=== PATIENT | male | born 1945 | race Caucasian/White ===

== ENCOUNTER 2019-02-04 16:26 | Inpatient (IN) | payer MEDICARE, MEDICAID ==
[~2019-02-04] VITALS: Ht 172.7 cm; Wt 63.2 kg
[~2019-02-04 16:26] MED LIST: ACET325T14 PO; APIX5TAB PO; NICO-487 TD; TAMS-11 PO
--- NOTE | 2019-02-04 17:26 | NUR ---
pt bib ems staing he thinks he's going to have a seizure. pt states he may have has a seizure in december, but "no one at the hospital told me what happened or why i was there." Pt is a&ox4, but very confused as to why he's here. connected to monitoes. vss. edmd assessment complete labs drawn. cxr complete. awaiting results.
--- NOTE | 2019-02-04 17:44 | NUR ---
lab to bedside.
--- NOTE | 2019-02-04 17:59 | NUR ---
pt requesting to go to restroom. pt provided urinal. pt agreed that if he feels like he may have a seizure, he should not stand so he wont fall. pt confused, stating "I want you to reverse me. reverse me from all the people." pt continues to make nonsense statements. pt reoriented and remined to use urinal. vss. awaiting lab results at this time.
[2019-02-04 18:09] LABS: BASOPHILS # (AUTO) 0.03 x10^3/uL (0-0.1); BASOPHILS % (AUTO) 0 % (0-1); EOSINOPHILS % (AUTO) 1 % (1-7); LYMPHOCYTES # (AUTO) 1.53 x10^3/uL (1-3.4); LYMPHOCYTES % (AUTO) 16 % (22-44); MD NO; MEAN CORPUSCULAR HGB CONC 33.6 g/dL (33.2-36.2); MEAN CORPUSCULAR VOLUME 95.3 fL (81-97); MEAN PLATELET VOLUME 8.1 fL (7.4-10.4); MONOCYTES # (AUTO) 0.62 x10^3/uL (0.2-0.8); MONOCYTES % (AUTO) 7 % (2-9); NEUTROPHILS # (AUTO) 7.14 x10^3/uL (1.8-6.8); NEUTROPHILS % (AUTO) 76 % (42-75); PLATELET COUNT 289 x10^3/uL (130-400); RED BLOOD COUNT 3.63 x10^6/uL (4.38-5.82); RED CELL DISTRIBUTION WIDTH 13.9 % (9.4-14.8)
[2019-02-04 18:14] LABS: ALANINE AMINOTRANSFERASE 26 U/L (12-78); ALBUMIN 3.9 g/dL (3.4-5.0); ANION GAP 6 mmol/L (5-15); CALCIUM 9.1 mg/dL (8.5-10.1); CHLORIDE 105 mmol/L (98-107); CREATININE 0.87 mg/dL (0.7-1.3)
[2019-02-04 18:16] LABS: ALKALINE PHOSPHATASE 80 U/L (45-117); BILIRUBIN,TOTAL 0.7 mg/dL (0.2-1.0); TOTAL PROTEIN 6.9 g/dL (6.4-8.2)
--- NOTE | 2019-02-04 18:21 | NUR ---
pt refusing help with urination from female staff. male tech to bedside to help.
--- NOTE | 2019-02-04 18:38 | NUR ---
pt to rr with this rn and male tech via wheelchair.
--- NOTE | 2019-02-04 19:14 | NUR ---
pt unable to get him self out of bed to try and ambulate, notified and criminal justice social worker, pt to be admitted per md
--- NOTE | 2019-02-04 19:39 | NUR ---
PT BACK FROM CT SCAN. IV PLACED, PT TOLERATED WELL.
--- NOTE | 2019-02-04 19:53 | NUR ---
pt unable to recall home medications. unable to complete med rec at this time. pt resting in room. needs frequent reminders not to remove equipment and not to get up out of bed. pt does not have steady gait and is not steady standing alone. vss. awaiting room assignment.
[2019-02-04] MEDS ORDERED: SODIUM CHLORIDE FLUSH 10ML SYR IVF PRN (20:00)
[2019-02-04] MEDS ORDERED: MECLIZINE CHEWABLE 25 MG TAB PO PRN (20:30)
[2019-02-04] MEDS ORDERED: BISACODYL 10 MG SUPP PR PRN (20:30)
[2019-02-04] MEDS ORDERED: ONDANSETRON ODT 4 MG PO PRN (20:30)
[2019-02-04] MEDS: APIXABAN 5 MG TABLET PO SCH (21:11)
[2019-02-04] MEDS: SODIUM CHLORIDE FLUSH 10ML SYR IVF SCH (21:11)
[2019-02-05 00:27] VITALS: BP 144/68
[2019-02-05 08:08] VITALS: BP 117/73
[2019-02-05] MEDS: SODIUM CHLORIDE FLUSH 10ML SYR IVF SCH ×2 (08:21→21:41)
[2019-02-05] MEDS: APIXABAN 5 MG TABLET PO SCH ×2 (08:21→21:41)
[2019-02-05] MEDS: SENNA/DOCUSATE TABLET PO SCH (08:21)
[2019-02-05] MEDS: TAMSULOSIN 0.4 MG CAP.ER.24H PO SCH (08:21)
[2019-02-05 08:44] LABS: BASOPHILS # (AUTO) 0.03 x10^3/uL (0-0.1); BASOPHILS % (AUTO) 0 % (0-1); EOSINOPHILS # (AUTO) 0.12 x10^3/uL (0-0.4); EOSINOPHILS % (AUTO) 1 % (1-7); LYMPHOCYTES % (AUTO) 16 % (22-44); MD NO; MEAN CORPUSCULAR HEMOGLOBIN 30.7 pg (27.5-34.5); MEAN CORPUSCULAR HGB CONC 32.6 g/dL (33.2-36.2); MEAN CORPUSCULAR VOLUME 94.4 fL (81-97); MEAN PLATELET VOLUME 8.2 fL (7.4-10.4); MONOCYTES % (AUTO) 6 % (2-9); NEUTROPHILS # (AUTO) 6.85 x10^3/uL (1.8-6.8); NEUTROPHILS % (AUTO) 77 % (42-75); PLATELET COUNT 310 x10^3/uL (130-400); RED BLOOD COUNT 4.06 x10^6/uL (4.38-5.82); RED CELL DISTRIBUTION WIDTH 13.6 % (9.4-14.8)
[2019-02-05 08:52] LABS: ANION GAP 6 mmol/L (5-15); CALCIUM 9.2 mg/dL (8.5-10.1); CHLORIDE 104 mmol/L (98-107)
[2019-02-05 08:57] LABS: ALANINE AMINOTRANSFERASE 24 U/L (12-78); ALKALINE PHOSPHATASE 83 U/L (45-117); BILIRUBIN,TOTAL 0.8 mg/dL (0.2-1.0); CREATININE 0.85 mg/dL (0.7-1.3); TOTAL PROTEIN 7.3 g/dL (6.4-8.2)
[2019-02-05] MEDS: POTASSIUM CHLORIDE 20 MEQ TAB.ER.PRT PO SCH ×2 (10:30→17:00)
[2019-02-05 12:59] VITALS: BP 163/75
[2019-02-05] MEDS ORDERED: HALOPERIDOL 1 MG TABLET PO PRN (15:00)
[2019-02-05] MEDS: HALOPERIDOL 2 MG/ML ORAL SOL PO PRN (15:17)
[2019-02-05 19:48] VITALS: BP 123/69
[2019-02-06] MEDS: HALOPERIDOL 2 MG/ML ORAL SOL PO PRN ×2 (00:48→16:30)
[2019-02-06 00:57] VITALS: BP 119/70
[2019-02-06 07:37] VITALS: BP 113/66
[2019-02-06] MEDS: POTASSIUM CHLORIDE 20 MEQ TAB.ER.PRT PO SCH ×2 (08:00→16:52)
[2019-02-06] MEDS: SODIUM CHLORIDE FLUSH 10ML SYR IVF SCH ×2 (08:19→21:00)
[2019-02-06] MEDS: TAMSULOSIN 0.4 MG CAP.ER.24H PO SCH (08:20)
[2019-02-06] MEDS: APIXABAN 5 MG TABLET PO SCH ×2 (08:20→20:06)
[2019-02-06] MEDS: SENNA/DOCUSATE TABLET PO SCH (08:20)
[2019-02-06 13:18] VITALS: BP 106/59
[2019-02-06] MEDS: ACETAMINOPHEN 325 MG TABLET PO PRN (20:06)
[2019-02-06 20:40] VITALS: BP 106/62
[2019-02-07 01:39] VITALS: BP 137/70
[2019-02-07 08:27] VITALS: BP 136/66
[2019-02-07] MEDS: SODIUM CHLORIDE FLUSH 10ML SYR IVF SCH ×2 (09:00→21:00)
[2019-02-07] MEDS: SENNA/DOCUSATE TABLET PO SCH (09:52)
[2019-02-07] MEDS: APIXABAN 5 MG TABLET PO SCH ×2 (09:52→21:18)
[2019-02-07] MEDS: TAMSULOSIN 0.4 MG CAP.ER.24H PO SCH (09:52)
[2019-02-07] MEDS: POTASSIUM CHLORIDE 20 MEQ TAB.ER.PRT PO SCH ×2 (09:52→17:11)
[2019-02-07 13:01] VITALS: BP 137/69
[2019-02-07 19:03] VITALS: BP 137/69
[2019-02-07] MEDS: HALOPERIDOL 2 MG/ML ORAL SOL PO PRN (21:18)
[2019-02-08 01:09] VITALS: BP 143/71
[2019-02-08 07:05] VITALS: BP 114/67
[2019-02-08] MEDS: TAMSULOSIN 0.4 MG CAP.ER.24H PO SCH (08:24)
[2019-02-08] MEDS: SENNA/DOCUSATE TABLET PO SCH (08:24)
[2019-02-08] MEDS: APIXABAN 5 MG TABLET PO SCH ×2 (08:25→21:30)
[2019-02-08] MEDS: POTASSIUM CHLORIDE 20 MEQ TAB.ER.PRT PO SCH ×2 (08:25→17:00)
[2019-02-08 08:44] LABS: ALBUMIN 3.9 g/dL (3.4-5.0); ANION GAP 5 mmol/L (5-15); CALCIUM 9.4 mg/dL (8.5-10.1); CHLORIDE 102 mmol/L (98-107); CREATININE 0.87 mg/dL (0.7-1.3)
[2019-02-08] MEDS: SODIUM CHLORIDE FLUSH 10ML SYR IVF SCH ×2 (09:00→21:00)
[2019-02-08 12:30] VITALS: BP 136/68
[2019-02-08 19:37] VITALS: BP 112/65
[2019-02-08] MEDS: MELATONIN 5 MG TABLET PO PRN (21:30)
[2019-02-09 01:07] VITALS: BP 134/76
[2019-02-09] MEDS: HALOPERIDOL 2 MG/ML ORAL SOL PO PRN ×2 (05:05→20:07)
[2019-02-09 06:26] LABS: ALBUMIN 3.8 g/dL (3.4-5.0); ANION GAP 7 mmol/L (5-15); CALCIUM 9.3 mg/dL (8.5-10.1); CHLORIDE 103 mmol/L (98-107)
[2019-02-09 06:30] LABS: ALANINE AMINOTRANSFERASE 21 U/L (12-78); ALKALINE PHOSPHATASE 73 U/L (45-117); BILIRUBIN,TOTAL 0.7 mg/dL (0.2-1.0); CREATININE 0.81 mg/dL (0.7-1.3); TOTAL PROTEIN 7.2 g/dL (6.4-8.2)
[2019-02-09 06:52] LABS: BASOPHILS # (AUTO) 0.03 x10^3/uL (0-0.1); BASOPHILS % (AUTO) 0 % (0-1); EOSINOPHILS # (AUTO) 0.27 x10^3/uL (0-0.4); EOSINOPHILS % (AUTO) 3 % (1-7); LYMPHOCYTES % (AUTO) 24 % (22-44); MD NO; MEAN CORPUSCULAR HEMOGLOBIN 31.2 pg (27.5-34.5); MEAN CORPUSCULAR HGB CONC 33.1 g/dL (33.2-36.2); MEAN CORPUSCULAR VOLUME 94.3 fL (81-97); MEAN PLATELET VOLUME 8.3 fL (7.4-10.4); MONOCYTES # (AUTO) 0.53 x10^3/uL (0.2-0.8); MONOCYTES % (AUTO) 7 % (2-9); NEUTROPHILS # (AUTO) 5.24 x10^3/uL (1.8-6.8); NEUTROPHILS % (AUTO) 66 % (42-75); PLATELET COUNT 316 x10^3/uL (130-400); RED BLOOD COUNT 3.78 x10^6/uL (4.38-5.82); RED CELL DISTRIBUTION WIDTH 13.6 % (9.4-14.8)
[2019-02-09 08:05] VITALS: BP 143/68
[2019-02-09] MEDS: SODIUM CHLORIDE FLUSH 10ML SYR IVF SCH ×2 (09:00→20:06)
[2019-02-09] MEDS: POTASSIUM CHLORIDE 20 MEQ TAB.ER.PRT PO SCH ×2 (10:37→16:14)
[2019-02-09] MEDS: SENNA/DOCUSATE TABLET PO SCH (10:37)
[2019-02-09] MEDS: TAMSULOSIN 0.4 MG CAP.ER.24H PO SCH (10:38)
[2019-02-09] MEDS: APIXABAN 5 MG TABLET PO SCH ×2 (10:38→20:07)
[2019-02-09 14:00] VITALS: BP 102/59
[2019-02-09] MEDS: ACETAMINOPHEN 325 MG TABLET PO PRN (16:14)
[2019-02-09] MEDS: MELATONIN 5 MG TABLET PO PRN (20:07)
[2019-02-09 21:31] VITALS: BP 107/63
[2019-02-09 23:33] LABS: MICROSCOPIC AUTO
[2019-02-09 23:44] LABS: CULTURE INDICATED? YES
[2019-02-10 01:49] VITALS: BP 121/71
[2019-02-10 07:34] VITALS: BP 144/70
[2019-02-10] MEDS: POTASSIUM CHLORIDE 20 MEQ TAB.ER.PRT PO SCH ×2 (08:00→16:50)
[2019-02-10] MEDS: SENNA/DOCUSATE TABLET PO SCH (09:00)
[2019-02-10] MEDS: SODIUM CHLORIDE FLUSH 10ML SYR IVF SCH ×2 (09:00→21:00)
[2019-02-10] MEDS: TAMSULOSIN 0.4 MG CAP.ER.24H PO SCH (10:23)
[2019-02-10] MEDS: APIXABAN 5 MG TABLET PO SCH ×2 (10:23→22:01)
[2019-02-10 13:29] VITALS: BP 121/72
[2019-02-10 19:39] VITALS: BP 98/61
[2019-02-10] MEDS: MELATONIN 5 MG TABLET PO PRN (22:01)
[2019-02-10] MEDS: HALOPERIDOL 2 MG/ML ORAL SOL PO PRN (22:02)
[2019-02-11 00:38] VITALS: BP 138/69
[2019-02-11] MEDS ORDERED: CEPHALEXIN 500 MG CAPSULE PO ONE (04:00)
[2019-02-11] MEDS: ACETAMINOPHEN 325 MG TABLET PO PRN ×2 (04:56→23:51)
[2019-02-11 07:41] VITALS: BP 90/53
[2019-02-11] MEDS: POTASSIUM CHLORIDE 20 MEQ TAB.ER.PRT PO SCH ×3 (08:00→17:12)
[2019-02-11] MEDS: SODIUM CHLORIDE FLUSH 10ML SYR IVF SCH ×2 (08:15→19:21)
[2019-02-11] MEDS: SENNA/DOCUSATE TABLET PO SCH (09:14)
[2019-02-11] MEDS: APIXABAN 5 MG TABLET PO SCH ×2 (09:14→21:42)
[2019-02-11] MEDS: TAMSULOSIN 0.4 MG CAP.ER.24H PO SCH (09:14)
[2019-02-11 13:35] VITALS: BP 117/66
[2019-02-11] MEDS ORDERED: CEFTRIAXONE PMX 1GM/50ML 50 ML IV SCH (14:30)
[2019-02-11] MEDS: CEFDINIR 300 MG CAPSULE PO SCH ×2 (15:56→21:40)
[2019-02-11 19:21] VITALS: BP 110/68
[2019-02-11] MEDS ORDERED: TRAZODONE 50MG TABLET PO SCH (21:00)
[2019-02-11] MEDS: POLYETHYLENE GLYCOL 17 GM PACKET PO PRN (21:37)
[2019-02-11] MEDS: MELATONIN 5 MG TABLET PO PRN (21:41)
[2019-02-12 01:33] VITALS: BP 150/73
[2019-02-12] MEDS: SODIUM CHLORIDE FLUSH 10ML SYR IVF SCH ×2 (06:48→20:07)
[2019-02-12 06:58] VITALS: BP 124/72
[2019-02-12] MEDS: APIXABAN 5 MG TABLET PO SCH ×3 (10:12→22:13)
[2019-02-12] MEDS: POTASSIUM CHLORIDE 20 MEQ TAB.ER.PRT PO SCH ×2 (10:12→17:54)
[2019-02-12] MEDS: CEFDINIR 300 MG CAPSULE PO SCH ×3 (10:12→21:00)
[2019-02-12] MEDS: SENNA/DOCUSATE TABLET PO SCH (10:12)
[2019-02-12] MEDS: TAMSULOSIN 0.4 MG CAP.ER.24H PO SCH (10:13)
[2019-02-12 13:25] VITALS: BP 106/63
[2019-02-12] MEDS: ACETAMINOPHEN 325 MG TABLET PO PRN ×2 (15:09→22:10)
[2019-02-12 15:17] LABS: BASOPHILS # (AUTO) 0.03 x10^3/uL (0-0.1); BASOPHILS % (AUTO) 0 % (0-1); EOSINOPHILS # (AUTO) 0.32 x10^3/uL (0-0.4); EOSINOPHILS % (AUTO) 4 % (1-7); LYMPHOCYTES # (AUTO) 2.08 x10^3/uL (1-3.4); LYMPHOCYTES % (AUTO) 27 % (22-44); MD NO; MEAN CORPUSCULAR HEMOGLOBIN 31.7 pg (27.5-34.5); MEAN CORPUSCULAR HGB CONC 33.4 g/dL (33.2-36.2); MEAN CORPUSCULAR VOLUME 94.8 fL (81-97); MEAN PLATELET VOLUME 7.5 fL (7.4-10.4); MONOCYTES # (AUTO) 0.46 x10^3/uL (0.2-0.8); MONOCYTES % (AUTO) 6 % (2-9); NEUTROPHILS # (AUTO) 4.88 x10^3/uL (1.8-6.8); NEUTROPHILS % (AUTO) 63 % (42-75); PLATELET COUNT 353 x10^3/uL (130-400); RED BLOOD COUNT 3.86 x10^6/uL (4.38-5.82); RED CELL DISTRIBUTION WIDTH 14.3 % (9.4-14.8)
[2019-02-12 15:30] LABS: ALANINE AMINOTRANSFERASE 21 U/L (12-78); ANION GAP 4 mmol/L (5-15); CALCIUM 9.4 mg/dL (8.5-10.1); CHLORIDE 105 mmol/L (98-107); CREATININE 1.05 mg/dL (0.7-1.3)
[2019-02-12 15:32] LABS: ALKALINE PHOSPHATASE 79 U/L (45-117); BILIRUBIN,TOTAL 0.4 mg/dL (0.2-1.0); TOTAL PROTEIN 7.5 g/dL (6.4-8.2)
[2019-02-12 19:10] VITALS: BP 101/58
[2019-02-12] MEDS: MELATONIN 5 MG TABLET PO PRN ×2 (20:07→22:13)
[2019-02-12] MEDS: HALOPERIDOL 2 MG/ML ORAL SOL PO PRN ×2 (20:07→22:10)
[2019-02-13 01:08] VITALS: BP 108/64
[2019-02-13 07:17] VITALS: BP 134/76
[2019-02-13] MEDS: SODIUM CHLORIDE FLUSH 10ML SYR IVF SCH ×2 (07:54→21:00)
[2019-02-13] MEDS: CEFDINIR 300 MG CAPSULE PO SCH ×2 (07:58→22:05)
[2019-02-13] MEDS: APIXABAN 5 MG TABLET PO SCH ×2 (07:58→22:05)
[2019-02-13] MEDS: POTASSIUM CHLORIDE 20 MEQ TAB.ER.PRT PO SCH ×2 (07:58→17:33)
[2019-02-13] MEDS: SENNA/DOCUSATE TABLET PO SCH (07:59)
[2019-02-13] MEDS: TAMSULOSIN 0.4 MG CAP.ER.24H PO SCH (07:59)
[2019-02-13 13:23] VITALS: BP 129/69
[2019-02-13 19:24] VITALS: BP 122/64
[2019-02-14 01:23] VITALS: BP 118/59
[2019-02-14 08:31] VITALS: BP 110/58
[2019-02-14] MEDS: SODIUM CHLORIDE FLUSH 10ML SYR IVF SCH ×2 (09:00→20:55)
[2019-02-14] MEDS: APIXABAN 5 MG TABLET PO SCH ×2 (10:58→20:52)
[2019-02-14] MEDS: SENNA/DOCUSATE TABLET PO SCH (10:58)
[2019-02-14] MEDS: POTASSIUM CHLORIDE 20 MEQ TAB.ER.PRT PO SCH ×2 (10:58→17:47)
[2019-02-14] MEDS: CEFDINIR 300 MG CAPSULE PO SCH ×2 (10:58→20:52)
[2019-02-14] MEDS: TAMSULOSIN 0.4 MG CAP.ER.24H PO SCH (10:59)
[2019-02-14] MEDS: ACETAMINOPHEN 325 MG TABLET PO PRN ×2 (11:22→20:52)
[2019-02-14 13:24] VITALS: BP 98/59
[2019-02-14 19:13] VITALS: BP 118/68
[2019-02-15 02:00] VITALS: BP 108/64
[2019-02-15] MEDS: CEFDINIR 300 MG CAPSULE PO SCH ×2 (09:27→20:56)
[2019-02-15] MEDS: SENNA/DOCUSATE TABLET PO SCH (09:27)
[2019-02-15] MEDS: POTASSIUM CHLORIDE 20 MEQ TAB.ER.PRT PO SCH ×2 (09:27→17:12)
[2019-02-15] MEDS: APIXABAN 5 MG TABLET PO SCH ×2 (09:28→20:56)
[2019-02-15] MEDS: TAMSULOSIN 0.4 MG CAP.ER.24H PO SCH (09:28)
[2019-02-15 09:37] VITALS: BP 126/65
[2019-02-15 14:00] VITALS: BP 132/69
[2019-02-15 19:00] VITALS: BP 115/65
[2019-02-16 02:37] VITALS: BP 132/67
[2019-02-16 08:00] VITALS: BP 131/65
[2019-02-16] MEDS: SENNA/DOCUSATE TABLET PO SCH (09:38)
[2019-02-16] MEDS: POTASSIUM CHLORIDE 20 MEQ TAB.ER.PRT PO SCH ×2 (09:39→17:08)
[2019-02-16] MEDS: TAMSULOSIN 0.4 MG CAP.ER.24H PO SCH (09:39)
[2019-02-16] MEDS: CEFDINIR 300 MG CAPSULE PO SCH ×2 (09:39→21:00)
[2019-02-16] MEDS: APIXABAN 5 MG TABLET PO SCH ×2 (09:39→21:00)
[2019-02-16 14:00] VITALS: BP 125/76
[2019-02-16 19:07] VITALS: BP 109/63
[2019-02-17 02:00] VITALS: BP 142/98
[2019-02-17 07:20] VITALS: BP 127/63
[2019-02-17] MEDS: POTASSIUM CHLORIDE 20 MEQ TAB.ER.PRT PO SCH ×2 (11:15→17:02)
[2019-02-17] MEDS: TAMSULOSIN 0.4 MG CAP.ER.24H PO SCH (11:15)
[2019-02-17] MEDS: SENNA/DOCUSATE TABLET PO SCH (11:15)
[2019-02-17] MEDS: CEFDINIR 300 MG CAPSULE PO SCH ×2 (11:15→19:23)
[2019-02-17] MEDS: APIXABAN 5 MG TABLET PO SCH ×2 (11:15→19:23)
[2019-02-17 13:20] VITALS: BP 121/68
[2019-02-17 18:31] VITALS: BP 113/65
[2019-02-17] MEDS: MELATONIN 5 MG TABLET PO PRN (22:37)
[2019-02-18 01:08] VITALS: BP 117/67
[2019-02-18 07:33] VITALS: BP 111/62
[2019-02-18] MEDS: TAMSULOSIN 0.4 MG CAP.ER.24H PO SCH (09:41)
[2019-02-18] MEDS: SENNA/DOCUSATE TABLET PO SCH (09:42)
[2019-02-18] MEDS: POTASSIUM CHLORIDE 20 MEQ TAB.ER.PRT PO SCH ×2 (09:42→17:37)
[2019-02-18] MEDS: CEFDINIR 300 MG CAPSULE PO SCH ×2 (09:42→19:47)
[2019-02-18] MEDS: APIXABAN 5 MG TABLET PO SCH ×2 (09:42→19:47)
[2019-02-18 14:50] VITALS: BP 113/64
[2019-02-18 19:21] VITALS: BP 115/62
[2019-02-18] MEDS: MELATONIN 5 MG TABLET PO PRN (19:47)
[2019-02-18] MEDS: ACETAMINOPHEN 325 MG TABLET PO PRN (21:57)
[2019-02-19 00:45] VITALS: BP 130/67
[2019-02-19] MEDS: HALOPERIDOL 2 MG/ML ORAL SOL PO PRN ×2 (01:18→18:24)
[2019-02-19 07:16] VITALS: BP 137/82
[2019-02-19] MEDS: SENNA/DOCUSATE TABLET PO SCH (09:30)
[2019-02-19] MEDS: POTASSIUM CHLORIDE 20 MEQ TAB.ER.PRT PO SCH ×2 (09:30→18:24)
[2019-02-19] MEDS: CEFDINIR 300 MG CAPSULE PO SCH ×2 (09:30→19:43)
[2019-02-19] MEDS: ACETAMINOPHEN 325 MG TABLET PO PRN ×2 (09:30→14:12)
[2019-02-19] MEDS: TAMSULOSIN 0.4 MG CAP.ER.24H PO SCH (09:30)
[2019-02-19] MEDS: APIXABAN 5 MG TABLET PO SCH ×2 (09:30→19:44)
[2019-02-19 12:52] VITALS: BP 107/62
[2019-02-19 19:04] VITALS: BP 132/66
[2019-02-19] MEDS: MELATONIN 5 MG TABLET PO PRN (19:44)
[2019-02-20 01:34] VITALS: BP 124/66
[2019-02-20] MEDS: HALOPERIDOL 2 MG/ML ORAL SOL PO PRN ×2 (06:29→14:39)
[2019-02-20 08:09] VITALS: BP 146/74
[2019-02-20] MEDS: APIXABAN 5 MG TABLET PO SCH ×2 (09:24→20:05)
[2019-02-20] MEDS: POTASSIUM CHLORIDE 20 MEQ TAB.ER.PRT PO SCH ×2 (09:24→17:31)
[2019-02-20] MEDS: SENNA/DOCUSATE TABLET PO SCH (09:24)
[2019-02-20] MEDS: TAMSULOSIN 0.4 MG CAP.ER.24H PO SCH (09:24)
[2019-02-20] MEDS: CEFDINIR 300 MG CAPSULE PO SCH ×2 (09:24→20:04)
[2019-02-20 12:53] VITALS: BP 118/67
[2019-02-20 19:10] VITALS: BP 136/71
[2019-02-20] MEDS: ACETAMINOPHEN 325 MG TABLET PO PRN (20:04)
[2019-02-20] MEDS: MELATONIN 5 MG TABLET PO PRN (20:05)
[2019-02-21 01:57] VITALS: BP 137/68
[2019-02-21] MEDS: HALOPERIDOL 2 MG/ML ORAL SOL PO PRN (02:23)
[2019-02-21 07:50] VITALS: BP 135/64
[2019-02-21] MEDS: POTASSIUM CHLORIDE 20 MEQ TAB.ER.PRT PO SCH ×2 (08:52→09:25)
[2019-02-21] MEDS: SENNA/DOCUSATE TABLET PO SCH ×2 (08:53→09:26)
[2019-02-21] MEDS: TAMSULOSIN 0.4 MG CAP.ER.24H PO SCH ×2 (08:53→09:26)
[2019-02-21] MEDS: CEFDINIR 300 MG CAPSULE PO SCH ×3 (08:53→20:21)
[2019-02-21] MEDS: APIXABAN 5 MG TABLET PO SCH ×3 (08:53→20:21)
[2019-02-21 16:23] LABS: ANION GAP 5 mmol/L (5-15); CALCIUM 9.6 mg/dL (8.5-10.1); CHLORIDE 107 mmol/L (98-107)
[2019-02-21 16:24] LABS: CREATININE 1.09 mg/dL (0.7-1.3)
[2019-02-21 20:10] VITALS: BP 149/75
[2019-02-21] MEDS: MELATONIN 5 MG TABLET PO PRN (20:21)
[2019-02-21] MEDS: ACETAMINOPHEN 325 MG TABLET PO PRN (20:22)
[2019-02-22 01:25] VITALS: BP 116/71
[2019-02-22 07:00] VITALS: BP 129/69
[2019-02-22] MEDS: CEFDINIR 300 MG CAPSULE PO SCH ×2 (09:00→21:05)
[2019-02-22] MEDS: TAMSULOSIN 0.4 MG CAP.ER.24H PO SCH (09:00)
[2019-02-22] MEDS: APIXABAN 5 MG TABLET PO SCH ×2 (09:00→21:05)
[2019-02-22] MEDS: SENNA/DOCUSATE TABLET PO SCH (09:00)
[2019-02-22] MEDS: ENOXAPARIN 40 MG/0.4 ML SQ SCH (12:30)
[2019-02-22 12:43] VITALS: BP 112/62
[2019-02-22 16:44] LABS: INTERNATIONAL NORMALIZED RATIO 1.02 (0.93-1.1); PROTHROMBIN TIME 10.7 Seconds (9.6-11.5)
[2019-02-22 19:27] VITALS: BP 121/70
[2019-02-22] MEDS: ACETAMINOPHEN 325 MG TABLET PO PRN (21:05)
[2019-02-23 06:57] VITALS: BP 110/67
[2019-02-23] MEDS: CEFDINIR 300 MG CAPSULE PO SCH ×2 (10:32→21:06)
[2019-02-23] MEDS: SENNA/DOCUSATE TABLET PO SCH (10:32)
[2019-02-23] MEDS: TAMSULOSIN 0.4 MG CAP.ER.24H PO SCH (10:32)
[2019-02-23] MEDS: APIXABAN 5 MG TABLET PO SCH ×2 (10:32→21:06)
[2019-02-23] MEDS: ENOXAPARIN 40 MG/0.4 ML SQ SCH (12:30)
[2019-02-23 14:00] VITALS: BP 112/62
[2019-02-23] MEDS: HALOPERIDOL 2 MG/ML ORAL SOL PO PRN (15:29)
[2019-02-23 19:39] VITALS: BP 133/72
[2019-02-23] MEDS: MELATONIN 5 MG TABLET PO PRN (21:06)
[2019-02-24 02:00] VITALS: BP 151/71
[2019-02-24 08:32] VITALS: BP 112/68
[2019-02-24] MEDS: APIXABAN 5 MG TABLET PO SCH ×2 (11:14→20:56)
[2019-02-24] MEDS: TAMSULOSIN 0.4 MG CAP.ER.24H PO SCH (11:14)
[2019-02-24] MEDS: SENNA/DOCUSATE TABLET PO SCH (11:15)
[2019-02-24] MEDS: ENOXAPARIN 40 MG/0.4 ML SQ SCH (12:30)
[2019-02-24 13:57] VITALS: BP 134/72
[2019-02-24] MEDS: MELATONIN 5 MG TABLET PO PRN (20:56)
[2019-02-24 21:36] VITALS: BP 104/60
[2019-02-25 02:54] VITALS: BP 95/60
[2019-02-25] MEDS: ACETAMINOPHEN 325 MG TABLET PO PRN (04:45)
[2019-02-25 06:15] VITALS: BP 126/69
[2019-02-25 06:19] LABS: CREATININE 0.97 mg/dL (0.7-1.3)
[2019-02-25] MEDS: SENNA/DOCUSATE TABLET PO SCH (07:53)
[2019-02-25] MEDS: APIXABAN 5 MG TABLET PO SCH ×2 (07:53→20:10)
[2019-02-25] MEDS: TAMSULOSIN 0.4 MG CAP.ER.24H PO SCH (07:53)
[2019-02-25] MEDS: ENOXAPARIN 40 MG/0.4 ML SQ SCH (12:30)
[2019-02-25 15:29] VITALS: BP 113/61
[2019-02-25 18:22] VITALS: BP 111/65
[2019-02-26 01:41] VITALS: BP 132/70
[2019-02-26 07:09] VITALS: BP 150/76
[2019-02-26] MEDS: SENNA/DOCUSATE TABLET PO SCH (09:43)
[2019-02-26] MEDS: APIXABAN 5 MG TABLET PO SCH ×2 (09:43→21:34)
[2019-02-26] MEDS: TAMSULOSIN 0.4 MG CAP.ER.24H PO SCH (09:43)
[2019-02-26 13:57] VITALS: BP 121/69
[2019-02-26 19:52] VITALS: BP 138/65
[2019-02-26] MEDS: MELATONIN 5 MG TABLET PO PRN (21:34)
[2019-02-26] MEDS: HALOPERIDOL 2 MG/ML ORAL SOL PO PRN (21:35)
[2019-02-27 01:25] VITALS: BP 150/73
[2019-02-27 08:19] VITALS: BP 132/74
[2019-02-27] MEDS: TAMSULOSIN 0.4 MG CAP.ER.24H PO SCH (09:00)
[2019-02-27] MEDS: APIXABAN 5 MG TABLET PO SCH ×2 (10:06→21:28)
[2019-02-27] MEDS: SENNA/DOCUSATE TABLET PO SCH (10:07)
[2019-02-27] MEDS: POLYETHYLENE GLYCOL 17 GM PACKET PO PRN (10:07)
[2019-02-27 13:35] VITALS: BP 118/66
[2019-02-27 19:51] VITALS: BP 140/71
[2019-02-28 01:00] VITALS: BP 114/66
[2019-02-28 05:16] LABS: CREATININE 0.93 mg/dL (0.7-1.3)
[2019-02-28 08:57] VITALS: BP 120/64
[2019-02-28] MEDS: TAMSULOSIN 0.4 MG CAP.ER.24H PO SCH (09:57)
[2019-02-28] MEDS: SENNA/DOCUSATE TABLET PO SCH (09:57)
[2019-02-28] MEDS: APIXABAN 5 MG TABLET PO SCH ×2 (09:57→21:04)
[2019-02-28 15:25] VITALS: BP 130/85
[2019-02-28 17:31] LABS: CULTURE INDICATED? YES; MICROSCOPIC INDICATED
[2019-02-28 21:10] VITALS: BP 104/62
[2019-02-28] MEDS: ACETAMINOPHEN 325 MG TABLET PO PRN (23:57)
[2019-03-01 04:52] VITALS: BP 119/64
[2019-03-01] MEDS ORDERED: CEFDINIR 300 MG CAPSULE PO SCH (09:00)
[2019-03-01 09:45] VITALS: BP 120/68
[2019-03-01] MEDS: APIXABAN 5 MG TABLET PO SCH ×2 (09:58→20:11)
[2019-03-01] MEDS: SENNA/DOCUSATE TABLET PO SCH (09:58)
[2019-03-01] MEDS: TAMSULOSIN 0.4 MG CAP.ER.24H PO SCH (09:58)
[2019-03-01] MEDS: SULFAMETH./TRIMETHOPRIM DS 800MG/160MG TABLET PO SCH ×2 (11:53→20:11)
[2019-03-01 14:15] VITALS: BP 145/70
[2019-03-01 18:30] VITALS: BP 136/67
[2019-03-01] MEDS: MELATONIN 5 MG TABLET PO PRN (20:11)
[2019-03-01] MEDS: HALOPERIDOL 2 MG/ML ORAL SOL PO PRN (23:29)
[2019-03-02 03:39] VITALS: BP 142/69
[2019-03-02 05:34] LABS: BASOPHILS # (AUTO) 0.02 x10^3/uL (0-0.1); BASOPHILS % (AUTO) 0 % (0-1); EOSINOPHILS # (AUTO) 0.08 x10^3/uL (0-0.4); EOSINOPHILS % (AUTO) 1 % (1-7); LYMPHOCYTES % (AUTO) 13 % (22-44); MD NO; MEAN CORPUSCULAR HEMOGLOBIN 31.8 pg (27.5-34.5); MEAN CORPUSCULAR HGB CONC 33.3 g/dL (33.2-36.2); MEAN CORPUSCULAR VOLUME 95.3 fL (81-97); MEAN PLATELET VOLUME 7.9 fL (7.4-10.4); MONOCYTES % (AUTO) 4 % (2-9); NEUTROPHILS # (AUTO) 11.03 x10^3/uL (1.8-6.8); NEUTROPHILS % (AUTO) 82 % (42-75); PLATELET COUNT 316 x10^3/uL (130-400); RED BLOOD COUNT 3.86 x10^6/uL (4.38-5.82); RED CELL DISTRIBUTION WIDTH 14.1 % (9.4-14.8)
[2019-03-02 05:35] LABS: ALANINE AMINOTRANSFERASE 22 U/L (12-78); ALBUMIN 3.9 g/dL (3.4-5.0); ANION GAP 8 mmol/L (5-15); CALCIUM 8.7 mg/dL (8.5-10.1); CHLORIDE 107 mmol/L (98-107); CREATININE 0.96 mg/dL (0.7-1.3)
[2019-03-02 05:38] LABS: ALKALINE PHOSPHATASE 81 U/L (45-117); BILIRUBIN,TOTAL 0.5 mg/dL (0.2-1.0); TOTAL PROTEIN 7.1 g/dL (6.4-8.2)
[2019-03-02 07:23] VITALS: BP 152/75
[2019-03-02] MEDS ORDERED: CEFTRIAXONE PMX 1GM/50ML 50 ML IV SCH (07:30)
[2019-03-02] MEDS: SENNA/DOCUSATE TABLET PO SCH (07:57)
[2019-03-02] MEDS: TAMSULOSIN 0.4 MG CAP.ER.24H PO SCH (07:57)
[2019-03-02] MEDS: APIXABAN 5 MG TABLET PO SCH ×2 (07:57→21:45)
[2019-03-02] MEDS: ACETAMINOPHEN 325 MG TABLET PO PRN (07:57)
[2019-03-02 13:45] VITALS: BP 132/68
[2019-03-02] MEDS: MEROPENEM 1 GM in SODIUM CHLORIDE 0.9% 100 ML IV SCH ×2 (14:30→22:52)
[2019-03-02 18:37] VITALS: BP 97/56
[2019-03-03 01:51] VITALS: BP 111/61
[2019-03-03 05:58] LABS: CREATININE 0.96 mg/dL (0.7-1.3)
[2019-03-03] MEDS: MEROPENEM 1 GM in SODIUM CHLORIDE 0.9% 100 ML IV SCH ×3 (06:33→22:24)
[2019-03-03 06:55] VITALS: BP 116/68
[2019-03-03 07:11] LABS: BASOPHILS # (AUTO) 0.05 x10^3/uL (0-0.1); BASOPHILS % (AUTO) 0 % (0-1); EOSINOPHILS # (AUTO) 0.33 x10^3/uL (0-0.4); EOSINOPHILS % (AUTO) 3 % (1-7); LYMPHOCYTES # (AUTO) 1.91 x10^3/uL (1-3.4); LYMPHOCYTES % (AUTO) 18 % (22-44); MD NO; MEAN CORPUSCULAR HEMOGLOBIN 30.3 pg (27.5-34.5); MEAN CORPUSCULAR VOLUME 97.8 fL (81-97); MEAN PLATELET VOLUME 7.9 fL (7.4-10.4); MONOCYTES % (AUTO) 5 % (2-9); NEUTROPHILS # (AUTO) 8.16 x10^3/uL (1.8-6.8); NEUTROPHILS % (AUTO) 75 % (42-75); PLATELET COUNT 289 x10^3/uL (130-400); RED BLOOD COUNT 3.63 x10^6/uL (4.38-5.82); RED CELL DISTRIBUTION WIDTH 14.3 % (9.4-14.8)
[2019-03-03] MEDS: SENNA/DOCUSATE TABLET PO SCH (12:43)
[2019-03-03] MEDS: TAMSULOSIN 0.4 MG CAP.ER.24H PO SCH (12:43)
[2019-03-03] MEDS: APIXABAN 5 MG TABLET PO SCH ×2 (12:43→21:44)
[2019-03-03 13:30] VITALS: BP 137/64
[2019-03-03] MEDS: ACETAMINOPHEN 325 MG TABLET PO PRN (17:10)
[2019-03-03 18:58] VITALS: BP 113/67
[2019-03-04 00:21] VITALS: BP 116/64
[2019-03-04 04:48] LABS: BASOPHILS # (AUTO) 0.06 x10^3/uL (0-0.1); BASOPHILS % (AUTO) 1 % (0-1); EOSINOPHILS # (AUTO) 0.35 x10^3/uL (0-0.4); EOSINOPHILS % (AUTO) 5 % (1-7); LYMPHOCYTES # (AUTO) 1.94 x10^3/uL (1-3.4); LYMPHOCYTES % (AUTO) 25 % (22-44); MD NO; MEAN CORPUSCULAR HEMOGLOBIN 32.1 pg (27.5-34.5); MEAN CORPUSCULAR HGB CONC 33.1 g/dL (33.2-36.2); MEAN CORPUSCULAR VOLUME 96.9 fL (81-97); MEAN PLATELET VOLUME 7.6 fL (7.4-10.4); MONOCYTES % (AUTO) 7 % (2-9); NEUTROPHILS # (AUTO) 4.92 x10^3/uL (1.8-6.8); NEUTROPHILS % (AUTO) 63 % (42-75); PLATELET COUNT 289 x10^3/uL (130-400); RED BLOOD COUNT 3.45 x10^6/uL (4.38-5.82); RED CELL DISTRIBUTION WIDTH 14.2 % (9.4-14.8)
[2019-03-04] MEDS: MEROPENEM 1 GM in SODIUM CHLORIDE 0.9% 100 ML IV SCH ×3 (06:01→23:00)
[2019-03-04 07:58] VITALS: BP 121/63
[2019-03-04] MEDS: SENNA/DOCUSATE TABLET PO SCH (11:14)
[2019-03-04] MEDS: TAMSULOSIN 0.4 MG CAP.ER.24H PO SCH (11:14)
[2019-03-04] MEDS: APIXABAN 5 MG TABLET PO SCH ×2 (11:14→20:10)
[2019-03-04 13:58] VITALS: BP 110/62
[2019-03-04] MEDS: ACETAMINOPHEN 325 MG TABLET PO PRN (17:40)
[2019-03-04 20:22] VITALS: BP 131/69
[2019-03-05 00:40] VITALS: BP 133/69
[2019-03-05] MEDS: MEROPENEM 1 GM in SODIUM CHLORIDE 0.9% 100 ML IV SCH ×4 (06:05→22:41)
[2019-03-05] MEDS: TAMSULOSIN 0.4 MG CAP.ER.24H PO SCH (09:00)
[2019-03-05] MEDS: APIXABAN 5 MG TABLET PO SCH ×2 (09:00→20:03)
[2019-03-05] MEDS: SENNA/DOCUSATE TABLET PO SCH (09:00)
[2019-03-05] MEDS: HALOPERIDOL 2 MG/ML ORAL SOL PO PRN (09:36)
[2019-03-05] MEDS: ACETAMINOPHEN 325 MG TABLET PO PRN (11:44)
[2019-03-05 19:52] VITALS: BP 98/61
[2019-03-06 02:04] VITALS: BP 110/63
[2019-03-06] MEDS: MEROPENEM 1 GM in SODIUM CHLORIDE 0.9% 100 ML IV SCH ×3 (06:13→22:42)
[2019-03-06 06:52] VITALS: BP 131/67
[2019-03-06 08:03] LABS: CREATININE 0.72 mg/dL (0.7-1.3)
[2019-03-06] MEDS: APIXABAN 5 MG TABLET PO SCH ×2 (08:58→20:28)
[2019-03-06] MEDS: SENNA/DOCUSATE TABLET PO SCH (08:58)
[2019-03-06] MEDS: TAMSULOSIN 0.4 MG CAP.ER.24H PO SCH (08:58)
[2019-03-06 13:03] VITALS: BP 164/80
[2019-03-06 15:22] VITALS: BP 119/67
[2019-03-06 18:46] VITALS: BP 153/75
[2019-03-06] MEDS: MELATONIN 5 MG TABLET PO PRN (20:28)
[2019-03-06] MEDS: HALOPERIDOL 2 MG/ML ORAL SOL PO PRN (20:29)
[2019-03-07 01:38] VITALS: BP 157/76
[2019-03-07] MEDS: MEROPENEM 1 GM in SODIUM CHLORIDE 0.9% 100 ML IV SCH ×3 (06:21→22:06)
[2019-03-07 06:31] VITALS: BP 173/83
[2019-03-07] MEDS ORDERED: hydrALAzine 20 MG/ML, 1ML IV PRN (07:00)
[2019-03-07] MEDS: TAMSULOSIN 0.4 MG CAP.ER.24H PO SCH (07:20)
[2019-03-07] MEDS: APIXABAN 5 MG TABLET PO SCH ×2 (07:20→22:06)
[2019-03-07] MEDS: SENNA/DOCUSATE TABLET PO SCH (07:20)
[2019-03-07] MEDS: HALOPERIDOL 2 MG/ML ORAL SOL PO PRN (11:07)
[2019-03-07] MEDS: ACETAMINOPHEN 325 MG TABLET PO PRN ×2 (11:07→17:19)
[2019-03-07 11:39] VITALS: BP 125/67
[2019-03-07] MEDS ORDERED: TRAZODONE 50MG TABLET PO PRN (12:00)
[2019-03-07 18:20] VITALS: BP 113/60
[2019-03-07] MEDS: MELATONIN 5 MG TABLET PO PRN (22:06)
[2019-03-07] MEDS: DIVALPROEX 125 MG TABLET.DR PO SCH (22:06)
[2019-03-08 00:02] VITALS: BP 147/85
[2019-03-08] MEDS: MEROPENEM 1 GM in SODIUM CHLORIDE 0.9% 100 ML IV SCH ×3 (06:30→22:17)
[2019-03-08 07:46] VITALS: BP 95/53
[2019-03-08] MEDS: SENNA/DOCUSATE TABLET PO SCH (10:25)
[2019-03-08] MEDS: DIVALPROEX 125 MG TABLET.DR PO SCH ×2 (10:25→22:17)
[2019-03-08] MEDS: TAMSULOSIN 0.4 MG CAP.ER.24H PO SCH (10:25)
[2019-03-08] MEDS: APIXABAN 5 MG TABLET PO SCH ×2 (10:25→22:17)
[2019-03-08 12:05] VITALS: BP 136/71
[2019-03-08 19:37] VITALS: BP 123/57
[2019-03-08] MEDS: ACETAMINOPHEN 325 MG TABLET PO PRN (22:17)
[2019-03-09 01:55] VITALS: BP 124/65
[2019-03-09 05:07] LABS: CREATININE 0.81 mg/dL (0.7-1.3)
[2019-03-09] MEDS: MEROPENEM 1 GM in SODIUM CHLORIDE 0.9% 100 ML IV SCH ×3 (06:23→23:15)
[2019-03-09] MEDS: APIXABAN 5 MG TABLET PO SCH ×2 (10:27→19:53)
[2019-03-09] MEDS: TAMSULOSIN 0.4 MG CAP.ER.24H PO SCH (10:27)
[2019-03-09] MEDS: SENNA/DOCUSATE TABLET PO SCH (10:27)
[2019-03-09] MEDS: DIVALPROEX 125 MG TABLET.DR PO SCH ×2 (10:27→19:53)
[2019-03-09 13:56] VITALS: BP 134/72
[2019-03-09 20:02] VITALS: BP 135/72
[2019-03-10] MEDS: ACETAMINOPHEN 325 MG TABLET PO PRN (01:59)
[2019-03-10 03:09] VITALS: BP 147/80
[2019-03-10] MEDS: MEROPENEM 1 GM in SODIUM CHLORIDE 0.9% 100 ML IV SCH (06:37)
[2019-03-10 08:34] VITALS: BP 145/69
[2019-03-10] MEDS: TAMSULOSIN 0.4 MG CAP.ER.24H PO SCH (09:07)
[2019-03-10] MEDS: SENNA/DOCUSATE TABLET PO SCH (09:07)
[2019-03-10] MEDS: DIVALPROEX 125 MG TABLET.DR PO SCH ×2 (09:07→20:23)
[2019-03-10] MEDS: APIXABAN 5 MG TABLET PO SCH ×2 (09:07→20:23)
[2019-03-10 13:19] VITALS: BP 143/71
[2019-03-10] MEDS: HALOPERIDOL 2 MG/ML ORAL SOL PO PRN (13:39)
[2019-03-10 19:51] VITALS: BP 120/62
[2019-03-11 01:07] VITALS: BP 132/70
[2019-03-11 07:54] VITALS: BP 132/75
[2019-03-11] MEDS: SENNA/DOCUSATE TABLET PO SCH (08:21)
[2019-03-11] MEDS: TAMSULOSIN 0.4 MG CAP.ER.24H PO SCH (08:21)
[2019-03-11] MEDS: APIXABAN 5 MG TABLET PO SCH ×2 (08:21→20:19)
[2019-03-11] MEDS: DIVALPROEX 125 MG TABLET.DR PO SCH ×2 (08:21→20:19)
[2019-03-11] MEDS ORDERED: TRAZODONE 100MG TABLET PO PRN (10:00)
[2019-03-11 15:30] VITALS: BP 147/73
[2019-03-11] MEDS: TRAZODONE 100MG TABLET PO SCH (20:19)
[2019-03-11] MEDS: MELATONIN 5 MG TABLET PO PRN (20:19)
[2019-03-11 20:33] VITALS: BP 138/78
[2019-03-11] MEDS: ACETAMINOPHEN 325 MG TABLET PO PRN (23:06)
[2019-03-12 01:05] VITALS: BP 157/73
[2019-03-12 05:55] LABS: CREATININE 0.82 mg/dL (0.7-1.3)
[2019-03-12 10:20] VITALS: BP 124/67
[2019-03-12] MEDS: AMLODIPINE 5 MG TABLET PO SCH ×2 (10:24→20:34)
[2019-03-12] MEDS: SENNA/DOCUSATE TABLET PO SCH (10:24)
[2019-03-12] MEDS: DIVALPROEX 125 MG TABLET.DR PO SCH ×2 (10:24→20:33)
[2019-03-12] MEDS: TAMSULOSIN 0.4 MG CAP.ER.24H PO SCH (10:24)
[2019-03-12] MEDS: APIXABAN 5 MG TABLET PO SCH ×2 (10:24→20:33)
[2019-03-12 14:21] VITALS: BP 117/69
[2019-03-12] MEDS: ACETAMINOPHEN 325 MG TABLET PO PRN (14:23)
[2019-03-12 20:27] VITALS: BP 124/64
[2019-03-12] MEDS: TRAZODONE 100MG TABLET PO SCH (20:34)
[2019-03-12] MEDS: MELATONIN 5 MG TABLET PO PRN (20:34)
[2019-03-13 02:04] VITALS: BP 144/69
[2019-03-13 08:09] VITALS: BP 111/63
[2019-03-13] MEDS: APIXABAN 5 MG TABLET PO SCH ×2 (08:26→19:51)
[2019-03-13] MEDS: DIVALPROEX 125 MG TABLET.DR PO SCH ×2 (08:26→19:51)
[2019-03-13] MEDS: AMLODIPINE 5 MG TABLET PO SCH ×2 (08:26→19:51)
[2019-03-13] MEDS: SENNA/DOCUSATE TABLET PO SCH (08:26)
[2019-03-13] MEDS: TAMSULOSIN 0.4 MG CAP.ER.24H PO SCH (08:27)
[2019-03-13] MEDS: ACETAMINOPHEN 325 MG TABLET PO PRN (12:24)
[2019-03-13 14:40] VITALS: BP 130/63
[2019-03-13] MEDS: HALOPERIDOL 2 MG/ML ORAL SOL PO PRN (16:00)
[2019-03-13] MEDS: TRAZODONE 100MG TABLET PO SCH (19:51)
[2019-03-13 20:29] VITALS: BP 102/62
[2019-03-14 01:32] VITALS: BP 137/64
[2019-03-14 07:12] VITALS: BP 127/70
[2019-03-14] MEDS: APIXABAN 5 MG TABLET PO SCH ×2 (09:16→19:37)
[2019-03-14] MEDS: DIVALPROEX 125 MG TABLET.DR PO SCH ×2 (09:16→19:37)
[2019-03-14] MEDS: SENNA/DOCUSATE TABLET PO SCH (09:16)
[2019-03-14] MEDS: TAMSULOSIN 0.4 MG CAP.ER.24H PO SCH (09:16)
[2019-03-14] MEDS: AMLODIPINE 5 MG TABLET PO SCH ×2 (09:17→19:37)
[2019-03-14] MEDS: HALOPERIDOL 2 MG/ML ORAL SOL PO PRN (09:31)
[2019-03-14 16:22] VITALS: BP 116/68
[2019-03-14 19:13] VITALS: BP 115/68
[2019-03-14] MEDS: TRAZODONE 100MG TABLET PO SCH (19:37)
[2019-03-15 03:18] VITALS: BP 110/70
[2019-03-15 07:15] VITALS: BP 147/80
[2019-03-15 08:53] LABS: CREATININE 0.94 mg/dL (0.7-1.3)
[2019-03-15] MEDS: DIVALPROEX 125 MG TABLET.DR PO SCH ×2 (09:39→19:52)
[2019-03-15] MEDS: APIXABAN 5 MG TABLET PO SCH ×2 (09:40→19:53)
[2019-03-15] MEDS: TAMSULOSIN 0.4 MG CAP.ER.24H PO SCH (09:41)
[2019-03-15] MEDS: AMLODIPINE 5 MG TABLET PO SCH ×2 (09:42→19:52)
[2019-03-15] MEDS: SENNA/DOCUSATE TABLET PO SCH (09:42)
[2019-03-15] MEDS ORDERED: DIVA125T31 PO (10:50)
[2019-03-15] MEDS ORDERED: TRAZ-137 PO (10:50)
[2019-03-15] MEDS ORDERED: AMLO-150 PO (10:50)
[2019-03-15 15:18] VITALS: BP 106/60
[2019-03-15] MEDS: TRAZODONE 100MG TABLET PO SCH (19:52)
[2019-03-15 19:58] VITALS: BP 101/62
[2019-03-16 00:34] VITALS: BP 120/62
[2019-03-16 08:56] VITALS: BP 116/58
[2019-03-16] MEDS: APIXABAN 5 MG TABLET PO SCH (09:53)
[2019-03-16] MEDS: DIVALPROEX 125 MG TABLET.DR PO SCH (09:53)
[2019-03-16] MEDS: TAMSULOSIN 0.4 MG CAP.ER.24H PO SCH (09:54)
[2019-03-16] MEDS: SENNA/DOCUSATE TABLET PO SCH (09:54)
[2019-03-16] MEDS: AMLODIPINE 5 MG TABLET PO SCH (09:54)
[2019-03-16 15:20] VITALS: BP 124/61
== END 2019-03-16 15:30 | disposition home or self-care (01) | DRG 690 ==
LOC: ED 17:55 → EDIP 19:46 → 3NE 20:46
PROVIDERS: ADMIT Family Medicine; ATTEND Family Medicine
DX: N39.0 Urinary tract infection, site not specified (principal); D68.69 Other thrombophilia; G93.49 Other encephalopathy; R41.89 Other symptoms and signs involving cognitive functions and awareness; Z66 Do not resuscitate; D64.9 Anemia, unspecified; R62.7 Adult failure to thrive; R26.81 Unsteadiness on feet; R53.81 Other malaise; B96.20 Unspecified Escherichia coli [E. coli] as the cause of diseases classified elsewhere; E87.5 Hyperkalemia; E87.6 Hypokalemia; G47.00 Insomnia, unspecified; I25.10 Atherosclerotic heart disease of native coronary artery without angina pectoris; K59.00 Constipation, unspecified; N28.1 Cyst of kidney, acquired; N40.0 Benign prostatic hyperplasia without lower urinary tract symptoms; Z16.12 Extended spectrum beta lactamase (ESBL) resistance; Z72.0 Tobacco use; Z79.01 Long term (current) use of anticoagulants; Z86.718 Personal history of other venous thrombosis and embolism; Z87.440 Personal history of urinary (tract) infections; Z68.21 Body mass index [BMI] 21.0-21.9, adult
CPT/HCPCS: 36415; 70450; 71045; 76700; 76770; 80048; 80053; 80307; 81001; 82040; 82140; 82565; 83690; 83735; 84100; 85025; 85610; 85730; 86480; 87040; 87077; 87086; 87184; 87186; 93005; 99285; G0378; J0696; J2185; Q0162; 92522-GN; G0515-GN; J0360

== ENCOUNTER 2019-04-18 12:39 | Emergency (ER) | payer MEDICARE, MEDICAID ==
[~2019-04-18] VITALS: Ht 172.7 cm; Wt 72.7 kg
[~2019-04-18 12:39] MED LIST changes: +AMLO-150 PO; +DIVA125T31 PO; +TRAZ-137 PO
--- NOTE | 2019-04-18 13:27 | NUR ---
biba. pt suicide attempt, full thickness lacerations to left wrist, L2K in place. Unknown TDAP. pt denies pain at this time .pt's aox4. resps even and unlabored. room secure. sitter monitoring from [facility] for safety.
--- NOTE | 2019-04-18 13:36 | NUR ---
pt finished his lunch at this time.
[2019-04-18 13:52] LABS: BASOPHILS # (AUTO) 0.05 x10^3/uL (0-0.1); BASOPHILS % (AUTO) 1 % (0-1); EOSINOPHILS # (AUTO) 0.11 x10^3/uL (0-0.4); EOSINOPHILS % (AUTO) 1 % (1-7); LYMPHOCYTES % (AUTO) 10 % (22-44); MD NO; MEAN CORPUSCULAR HEMOGLOBIN 31.4 pg (27.5-34.5); MEAN CORPUSCULAR HGB CONC 32.5 g/dL (33.2-36.2); MEAN CORPUSCULAR VOLUME 96.7 fL (81-97); MEAN PLATELET VOLUME 8.3 fL (7.4-10.4); MONOCYTES # (AUTO) 0.45 x10^3/uL (0.2-0.8); MONOCYTES % (AUTO) 5 % (2-9); NEUTROPHILS % (AUTO) 84 % (42-75); PLATELET COUNT 219 x10^3/uL (130-400); RED BLOOD COUNT 4.04 x10^6/uL (4.38-5.82); RED CELL DISTRIBUTION WIDTH 13.8 % (9.4-14.8)
[2019-04-18] MEDS ORDERED: LIDOCAINE-MPF 1%, 2ML ONE (13:54)
[2019-04-18] MEDS ORDERED: LIDOCAINE 1%, 2ML INFIL ONE (14:00)
[2019-04-18 14:05] LABS: CALCIUM 8.7 mg/dL (8.5-10.1); CHLORIDE 106 mmol/L (98-107)
[2019-04-18 14:11] LABS: ALANINE AMINOTRANSFERASE 16 U/L (12-78); ALBUMIN 3.7 g/dL (3.4-5.0); ALKALINE PHOSPHATASE 62 U/L (45-117); ANION GAP 7 mmol/L (5-15); BILIRUBIN,TOTAL 0.5 mg/dL (0.2-1.0); CREATININE 1.09 mg/dL (0.7-1.3); TOTAL PROTEIN 6.7 g/dL (6.4-8.2)
[2019-04-18 14:12] LABS: SALICYLATE LEVEL < 1.7 mg/dL (2.8-20.0)
--- NOTE | 2019-04-18 14:46 | NUR ---
REPORT FROM CLARISSA ALLEN. ROOM SECURE. SITTER PRESENT.
--- NOTE | 2019-04-18 14:55 | NUR ---
REPORT GIVEN TO YULY ROMO.
--- NOTE | 2019-04-18 15:07 | NUR ---
BELONGINGS BAGGED (1) AND PLACED IN LOCKER BY CLARISSA ALLEN. PT PROVIDED URINAL AND IS AWARE OF NEED OF UA.
--- NOTE | 2019-04-18 15:22 | NUR ---
ERP AT BEDSIDE FOR SUTURES.
[2019-04-18] MEDS ORDERED: NEOSPORIN OINT. PKT 1 PACKET ONE (16:18)
[2019-04-18] MEDS ORDERED: CEPHALEXIN 500 MG CAPSULE ONE (16:18)
[2019-04-18] MEDS ORDERED: CEPHALEXIN 500 MG CAPSULE PO ONE (16:30)
[2019-04-18] MEDS ORDERED: BACITRACIN ZINC OINT 500U/GM, 0.9 GM TP SCH (16:30)
--- NOTE | 2019-04-18 16:35 | NUR ---
PT MEDICATED PER EMAR. WOUND CARE PROVIDED. LINENS CHANGED. ROOM REMAINS SECURE. SITTER PRESENT. URINAL AT BEDSIDE. PT AWARE OF NEED FOR URINE
--- NOTE | 2019-04-18 16:49 | NUR ---
PT SITTING AT EOB ATTEMPTING UA
[2019-04-18] MEDS ORDERED: LORazepam 1MG TABLET ONE ×2 (17:06→23:29)
--- NOTE | 2019-04-18 17:14 | NUR ---
PT W/ INCREASING AGITATION, "I NEED TO GET UP AND WALK AROUND. I'M LOSING MY MIND". PT HAD JUST RETURNED TO [facility] FROM STANDING TO ATTEMPT UA WITH SITTER AT BEDSIDE. UNABLE TO VOID. ERP AWARE OF BEHAVIOR. ORDER RECEIVED FOR ATIVAN. PT MEDICATED PER EMAR. SITTER REMAINS AT BEDSIDE.
[2019-04-18] MEDS ORDERED: LORazepam 1MG TABLET PO ONE ×2 (17:30→23:30)
--- NOTE | 2019-04-18 17:32 | NUR ---
TECH PROVIDED PT WITH HOSPITAL SOCKS AND ASSISTED IN HELPING PT STAND AND WALK TO RESTROOM. PT REMAINS UNABLE TO PROVIDE UA.
--- NOTE | 2019-04-18 17:33 | NUR ---
DRIED BLOOD NOTED ON WOUND DRESSING. AWAITING PT TO CALM FOR REPEAT WOUND CARE.
--- NOTE | 2019-04-18 17:52 | NUR ---
PT REQUIRING CONSTANT REDIRECTION. WOUND CARE COMPLETED. PT CONTINUES WITH MODERATE BLEEDING FROM SITE. ARCHITECTURE TECHNICIAN MADE AWARE OF PT REQUIRING CONSTANT STAND BY FOR REDIRECTION. TECH ASSIGNED TO PT AND ADDITIONAL SITTER REQUESTED FROM [facility].
--- NOTE | 2019-04-18 18:16 | NUR ---
UA COLLECTED AND SENT.
[2019-04-18 18:44] LABS: AMPHETAMINE SCREEN, URINE Negative (Negative); BARBITURATE SCREEN, URINE Negative (Negative); BENZODIAZEPINE SCREEN, URINE Negative (Negative); CANNABINOID SCREEN, URINE Negative (Negative); COCAINE SCREEN, URINE Negative (Negative); METHADONE SCREEN, URINE Negative (Negative); OPIATE SCREEN, URINE Negative (Negative)
--- NOTE | 2019-04-18 18:48 | NUR ---
Patient refused at 2N and 3E due to hx of ESBL.
--- NOTE | 2019-04-18 18:59 | NUR ---
RECEIVED REPORT FROM YULY ROMO. CARE ASSUMED. PT RESTING WITH EYES CLOSED ON GURNEY, RESP REGULAR, EVEN, UNLABORED WITH EQUAL CHEST RISE. SITTER AT DOOR FOR CONTINUOUS SAFETY OBSERVATION. WILL ASSESS VITALS WHEN PT AWAKE. GARAGE DOORS DOWN. PT IN GOWN. SAFE AND SECURE ENVIRONMENT PROVIDED. ALL BELONGINGS LOCKED IN CABINET FOR SAFETY. FALL PRECAUTIONS IN PLACE, SIDE RAILS UPX2.
--- NOTE | 2019-04-18 19:27 | NUR ---
PT CONTINUES SLEEPING, RESP REGULAR, EVEN UNLABORED. EQUAL CHEST RISE. FALL PRECAUTIONS IN PLACE. SIDE RAILS UPX2. SITTER AT DOOR FOR CONTINUOUS SAFETY OBSERVATION.
--- NOTE | 2019-04-18 20:02 | NUR ---
THROUGHPUT: PAPERWORK PACKET FAXED TO [facility], [facility], [facility].
--- NOTE | 2019-04-18 20:15 | NUR ---
PT AWAKE, REQUESTING TO USE URINAL ASSISTED TO SIDE OF BED, PT THEN DENIES URGE TO USE RESTROOM. ASSISTED BACK TO BED. LEFT WRIST WOUND DRESSING WITH MODERATE BLOOD NOTED, DISCUSSED WITH DR. SERNA, AWARE. DRESSING REMOVED, WOUND CARE PROVIDED, STERI-STRIPS APPLIED DISCUSSED WITH DR. SERNA, NEW DRESSING APPLIED. LEFT HAND WITH +SWELLING, CAP REFILL BRISK. BRACHIAL PULSE NORMAL AND STRONG. WILL CONTINUE TO MONITOR WOUND AND DISCUSS WITH DR. SERNA. SITTER REMAINS AT DOOR FOR CONTINUOUS SAFETY OBSERVATION
--- NOTE | 2019-04-18 20:20 | NUR ---
PT REQUESTING WATER, PROVIDED PER ERP OKAY, TOLERATING PO WELL. REFUSES OFFER FOR FOOD. SITTER AT DOOR FOR CONT SAFETY OBS.
--- NOTE | 2019-04-18 20:45 | NUR ---
PT SLEEPING, RESP REGULAR EVEN UNLABORED, EQUAL CHEST RISE. SITTER AT DOOR FOR CONT SAFETY OBSERVATION
--- NOTE | 2019-04-18 20:56 | NUR ---
ABHAY FROM [facility] CALLED TO REQUEST ADDITIONAL PT INFORMATION FOR POSSIBLE PLACEMENT TO FACILITY
--- NOTE | 2019-04-18 21:00 | NUR ---
PT VOIDED IN BED, CLEANSED, NEW BED LINENS AND GOWN APPLIED, WARM BLANKETS PROVIDED. FALL PRECAUTIONS IN PLACE. SIDE RAILS UPX2. DRESSING WITH SCANT BLOOD NOTED, DISCUSSED WITH DR. SERNA, AWARE, NO NEW ORDERS RECEIVED, NO CHANGES TO SWELLING/CAP REFILL, PULSE NORMAL, WILL CONTINUE TO MONITOR. SITTER AT DOOR FOR CONT SAFETY OBSERVATION
--- NOTE | 2019-04-18 22:20 | NUR ---
PT RESTING IN POSITION OF COMFORT. DENIES PAIN AND NEED TO USE RESTROOM. DRESSING WITH SLIGHT INCREASE IN DRAINAGE/BLOOD. DISCUSSED WITH , AWARE, NO NEW ORDERS AT THIS TIME, WOUND CARE COMPLETED. NO CHANGE IN SWELLING TO LEFT HAND FROM INITIAL ASSESSMENT AND HISTORY OF LEFT ARM DEFICIT. CAP REFILL BRISK. SITTER AT DOOR FOR CONTINUOUS SAFETY OBSERVATION, CONSTANT REDIRECTION PROVIDED. PT COOPERATIVE.
--- NOTE | 2019-04-18 23:25 | NUR ---
DISCUSSED PT'S WOUND AND DRESSING CHANGES THROUGHOUT DAY FROM STAFF WITH ERP DR. FRANKS, ORDERS RECEIVED FOR AVITENE, REQUESTED FROM PHARMACY. PT REQUESTING MEDICATION "FOR PAIN AND TO HELP ME SLEEP." DR. FRANKS AT BEDSIDE FOR WOUND CHECK AND DISCUSSING PT REQUESTS, ORDERS RECEIVED. TO MEDICATE PER MD. FALL PRECAUTIONS IN PLACE. SITTER AT DOOR FOR CONT SAFETY OBSERVATION
[2019-04-18] MEDS ORDERED: ACETAMINOPHEN 325 MG TABLET ONE (23:29)
[2019-04-18] MEDS ORDERED: DIPHENHYDRAMINE 25 MG CAPSULE ONE (23:29)
[2019-04-18] MEDS ORDERED: DIPHENHYDRAMINE 25 MG CAPSULE PO ONE (23:30)
[2019-04-18] MEDS ORDERED: MICROFIBRILLAR COLLAGEN 70X35X1 DRESSING TP ONE (23:30)
[2019-04-18] MEDS ORDERED: ACETAMINOPHEN 325 MG TABLET PO ONE (23:30)
--- NOTE | 2019-04-19 00:06 | NUR ---
AVITENE DRESSING APPLIED PER DR. FRANKS, NO ACTIVE BLEEDING NOTED AT THIS TIME. DRESSING CDI. CMS INTACT. NO CHANGE IN SWELLING. CAP REFILL BRISK. PT MEDICATED PER REQUEST FOR 10/10 LEFT ARM PAIN AND TO ASSIST WITH SLEEPING. ASSISTED WITH URINAL. RE-POSITIONED FOR COMFORT. WARM BLANKETS PROVIDED. CONTINUE AWAITING HOSPITAL BED. VSS. SITTER AT BEDSIDE/DOOR FOR CONTINUOUS SAFETY OBSERVATION. FALL PRECAUTIONS IN PLACE.
--- NOTE | 2019-04-19 00:37 | NUR ---
LATE ENTRY 1904-DISCUSSED LEFT HAND/ARM WITH YULY ROMO. PT REPORTED HX OF STROKE WITH LEFT SIDE DEFICITS, LEFT HAND WITH CONTRACTURE/SWELLING ON ARRIVAL. NO CHANGE TO SWELLING/DRESSING FROM PREVIOUS CALL OR CONTACT CENTRE MANAGER. DISCUSSED WITH ERP AWARE. PULSE NORMAL AND STRONG. CAP REFILL BRISK. SKIN PWD. HOSPITAL BED REQUESTED FOR COMFORT. SITTER AT DOOR FOR CONT. SAFETY OBSERVATION.
--- NOTE | 2019-04-19 00:52 | NUR ---
DRESSING CDI, NO BLEEDING NOTED. NO CHANGE TO HAND SWELLING, CAP REFILL BRISK, SKIN PWD. PULSE NORMAL AND STRONG. SITTER AT DOOR FOR CONT SAFETY OBSERVATION. FALL PRECAUTIONS IN PLACE. DENIES URGE TO USE RESTROOM. RE-POSITIONED FOR COMFORT. HOUSEKEEPING CALLED FOR HOSPITAL BED, TO BRING CATRINA/AVAILABLE.
--- NOTE | 2019-04-19 01:05 | NUR ---
BEDSIDE REPORT AND CARE TO TANA ROMO. PT MOVED TO HOSPITAL BED FOR COMFORT. ABLE TO STAND AND TRANSFER WITH ASSISTANCE. SITTER AT BEDSIDE/DOOR FOR CONT SAFETY OBS.
--- NOTE | 2019-04-19 01:28 | NUR ---
BS REPORT OF PT FROM CLARISSA MAYFIELD.
[2019-04-19] MEDS ORDERED: ZIPRASIDONE 20 MG INJ IM ONE ×4 (02:19→07:30)
--- NOTE | 2019-04-19 02:31 | NUR ---
patient keep on getting up on bed. MD aware. medicated.
--- NOTE | 2019-04-19 03:08 | NUR ---
pt medicated per dec. pt resting in [facility] [place] at this time with sitter at lauren. tyrone.
--- NOTE | 2019-04-19 04:06 | NUR ---
PT REMOVED FROM RESTRAINTS. PT HAD INCONTINENT EPOISODE TO URINE. PT BED CHANGED AND PT PROVIDED WITH NEW CLOTHING.
--- NOTE | 2019-04-19 04:47 | NUR ---
PT ASLEEP IN [facility] AT THIS TIME; RESTING COMFORTABLY WITH NO ACUTE DISTRESS NOTED. PT HAS SITTER OUTSIE OF ROOM FOR DIRECT OBSERVATION OF PT.
[2019-04-19] MEDS ORDERED: TRANEXAMIC ACID 100 MG/ML, 10ML TP ONE (05:30)
[2019-04-19] MEDS ORDERED: TRANEXAMIC ACID 100 MG/ML, 10ML ONE (05:37)
[2019-04-19] MEDS ORDERED: LIDOCAINE-MPF 1%, 5ML ONE (05:38)
--- NOTE | 2019-04-19 05:55 | NUR ---
ADDITIONAL SUTURES APPLIED TO PT ARM. PT MEDICATED PER MAR WITH BLEEDING CONTROLLED AT THIS STAGE. PRESSURE BANDAGE APPLIED. LAB AT BS AT THIS TIME. PT GOWN CHANGED. SITTER OUTSIDE OF PT ROOM FOR DIRECT OBSERVATION OF PT.
[2019-04-19] MEDS ORDERED: LIDOCAINE 1%-EPI 1:100K, 20ML SQ ONE (06:00)
[2019-04-19 06:22] LABS: INTERNATIONAL NORMALIZED RATIO 1.03 (0.93-1.1); PROTHROMBIN TIME 10.8 Seconds (9.6-11.5)
--- NOTE | 2019-04-19 07:05 | NUR ---
I AM ASSUMING CARE OF THIS PT FROM TANA (CLARISSA) AT THIS TIME. SBAR REPORT WAS EXCHANGED AT THE BEDSIDE.
--- NOTE | 2019-04-19 07:10 | NUR ---
EKG AT THE BEDSIDE
--- NOTE | 2019-04-19 07:25 | NUR ---
PT APPEARS ANXIOUS UPON ASSESSMENT. CONTRACTURES TO LEFT ARM, AND MUSCLE RIGIDITY THROUGHOUT. SOFT RESTRAINTS ARE APPLED TO UPPERT EXTREMETY TO ENSURE DRESSING SECURITY. NORMAL EKG. I HAVE MEDICATED PER THE MAR.
--- NOTE | 2019-04-19 08:16 | NUR ---
PT IS SLEEPING SONOROUSLY ON AHOSPITAL BED. NO ACUTE DISTRESS NOTED AT THIS TIME. I WILL PROVIDE WITH MEAL TRAY UPON AWAKENING.
--- NOTE | 2019-04-19 09:52 | NUR ---
PT IS STILL SLEEPING SONOROUSLY ON A HOSPITAL BED. VS ARE STABLE, AND WDL. I WILL CONTINUE TO MONITOR AND TREAT ORDERED, WELL PRN WHILE AWAITING ROOM ASSIGNMENT FOR TREATMENT IN A LOCAL FACILITY.
--- NOTE | 2019-04-19 10:19 | NUR ---
pt is resting comfortably and is no longer pulling at restraints or attempting to "pick at" sutures. there is no acute distress noted at this time, as he is sleeping sonorously. i will continue to monitor and treat as ordered, as well as prn.
--- NOTE | 2019-04-19 10:58 | NUR ---
linen change provided. sitter is standing over the patient at the bedside.
--- NOTE | 2019-04-19 11:15 | NUR ---
pt stood at the bedside to attempt to void. unable to void at this time. bladder scan shows 280 cc.
--- NOTE | 2019-04-19 11:29 | NUR ---
pt requested change in position. accomodation provided. fresh blankets and water provided as well.
--- NOTE | 2019-04-19 12:27 | NUR ---
full linen change. pt walked to the restroom with assist of one. unable to void.
--- NOTE | 2019-04-19 13:13 | NUR ---
jorge (rn) is assuming care of this pt at this time. sbar report was exchanged at the bedside.
--- NOTE | 2019-04-19 13:15 | NUR ---
REPORT FROM SHANNA ROMO, ASSUME CARE OF PT AT THIS TIME. SITTER IN ROOM WITH PT.
--- NOTE | 2019-04-19 14:15 | NUR ---
PT SLEEPING, NAD, SITTER AT DOORWAY.
--- NOTE | 2019-04-19 15:11 | NUR ---
PT SLEEPING, NAD, SITTER AT DOORWAY.
--- NOTE | 2019-04-19 16:24 | NUR ---
PT ASSIST WITH REPOSITIONING IN BED. PT BACK TO SLEEP, SITTER AT DOORWAY.
--- NOTE | 2019-04-19 17:44 | NUR ---
DINNER TRAY PROVIDED, PT ASSISTED IN SITTING UP IN BED WITH SITTER IN ROOM. SWELLING TO LEFT HAND NOTED, COBAN REMOVED AND REPLACED WITH LOOSER KYLEE WRAP TO PROTECT SUTURED WOUND. PT ENCOURAGED TO ELEVATE L HAND WHEN ABLE TO REDUCE SWELLING.
--- NOTE | 2019-04-19 18:35 | NUR ---
REVIEW OF HX SHOWS PT WITH HX OF ESBL. ATTEMPT TO GET UA FROM PT, PT UNABLE TO PROVIDE AT THIS TIME. ISOLATION CART PLACED AT DOORWAY. SITTER AWARE OF NEED FOR UA.
--- NOTE | 2019-04-19 19:36 | NUR ---
PT SLEEPING, NAD. SITTER AT DOORWAY
--- NOTE | 2019-04-19 20:30 | NUR ---
SITTER AT DOORWAY, PT SLEEPING, NAD.
--- NOTE | 2019-04-19 21:24 | NUR ---
URINE COLLECTED/SENT TO LAB
[2019-04-19 21:49] LABS: MICROSCOPIC AUTO
[2019-04-19 21:54] LABS: CULTURE INDICATED? YES
--- NOTE | 2019-04-19 22:00 | NUR ---
REPORT FROM CLARISSA PICKERING. RESULTS OF UA DISCUSSED WITH ERP GOLDEN. ORDER FOR ABX PLACED. ERP AWARE THAT PT'S HOME MEDS HAVE NOT BEEN ORDERED/PROVIDED TO PT THROUGHOUT STAY. NO ORDERS RECEIVED. PT BP WNL. PT AFEBRILE. PT LAYING IN GURNEY, AWAKE/ALERT. PT CALM AND COOPERATIVE AT THIS TIME. COMMODE AT BEDSIDE. ROOM SECURE AND SITTER PRESENT.
--- NOTE | 2019-04-19 22:15 | NUR ---
REPORT TO YULY ROMO, TRANSFER OF CARE AT THIS TIME.
[2019-04-19] MEDS: NITROFURANTOIN (MACROBID) 100 MG CAPSULE PO SCH (22:30)
[2019-04-19] MEDS ORDERED: NITROFURANTOIN (MACROBID) 100 MG CAPSULE ONE (22:49)
--- NOTE | 2019-04-19 23:02 | NUR ---
PT MEDICATED PER EMAR W/ MACROBID FOR TX OF UTI. LEFT HAND W 2+ EDEMA, NON-PITTING. <3S CAP REFILL. BLEEDING APPEARS CONTROLLED. KYLEE BANDAGE REMOVED FROM LUE IN EFFORT TO REDUCE SWELLING. HAND ELEVATED.
--- NOTE | 2019-04-20 00:38 | NUR ---
PT RESTING IN HOSPITAL BED, NAD NOTED. SITTER AT DOORWAY
--- NOTE | 2019-04-20 01:22 | NUR ---
PT RESTING IN GURNEY WATCHING TV. CALM AND COOPERATIVE. R WRIST BLEEDING REMAINS CONTROLLED. IMPROVEMENT IN SWELLING NOTED WITH KYLEE WRAP REMOVED. CMS AT BASELINE. PT DENIES NEEDS. SITTER REMAINS AT DOORWAY FOR OBS.
--- NOTE | 2019-04-20 02:31 | NUR ---
PT RESTING IN HOSPITAL BED WITH EYES CLOSED. EVEN/REGULAR RESPIRATIONS NOTED. SITTER AT DOORWAY
--- NOTE | 2019-04-20 03:13 | NUR ---
REPORT TO CLARISSA LYNNE
--- NOTE | 2019-04-20 04:29 | NUR ---
PT ADJUSTED IN BED TO POSITION OF COMFORT. PT GIVEN ICE CREAM. PT EATING WITHOUT DIFFICULTY. POC DISCUSSED. SITTER IN PLACE.
--- NOTE | 2019-04-20 06:33 | NUR ---
PT ABLE TO PERFORM BED BATH. POC DISCUSSED. SITTER REMAINS IN PLACE.
[2019-04-20] MEDS ORDERED: NITROFURANTOIN (MACROBID) 100 MG CAPSULE ONE ×2 (10:02→19:43)
[2019-04-20] MEDS: NITROFURANTOIN (MACROBID) 100 MG CAPSULE PO SCH ×2 (10:11→19:55)
--- NOTE | 2019-04-20 11:09 | NUR ---
pt sitting up in bed. awaiting for lunch tray. sitter remains at BS.
--- NOTE | 2019-04-20 12:18 | NUR ---
Pt in bed, watching tv, sitter in direct line of sight. Pt denies any current needs or concerns.
--- NOTE | 2019-04-20 13:21 | NUR ---
received bedside report from CLARISSA Banks.
--- NOTE | 2019-04-20 13:41 | NUR ---
PT SLEEPING ON HOSP BED. NO ACUTE DISTRESS NOTED. SITTER AT DOORWAY. ALL SAFETY MEASURES OBTAINED. WILL CONTINUE TO MONITOR. PER REPORT PT STILL HAS SI.
[2019-04-20] MEDS ORDERED: ZOLPIDEM 5MG TABLET PO PRN (18:00)
[2019-04-20] MEDS ORDERED: GUAIFENESIN/DM 200-20MG, 10ML UDC PO PRN ×2 (18:00→20:30)
[2019-04-20] MEDS ORDERED: DOCUSATE 100 MG CAPSULE PO PRN ×2 (18:00→20:30)
[2019-04-20] MEDS ORDERED: IBUPROFEN 600 MG TABLET PO PRN ×2 (18:00→20:30)
[2019-04-20] MEDS ORDERED: BACITRACIN ZINC OINT 500U/GM, 0.9 GM TP ONE (18:00)
[2019-04-20] MEDS ORDERED: ACETAMINOPHEN 325 MG TABLET PO PRN ×2 (18:00→20:30)
[2019-04-20] MEDS ORDERED: ONDANSETRON ODT 4 MG PO PRN ×2 (18:00→20:30)
[2019-04-20] MEDS ORDERED: NICOTINE 21 MG/24 HR PATCH.TD24 TD SCH ×2 (18:00)
[2019-04-20] MEDS ORDERED: ENOXAPARIN 30 MG/0.3 ML SQ SCH (18:00)
[2019-04-20] MEDS ORDERED: ENALAPRILAT 1.25 MG/ML, 2ML IVPush PRN ×2 (18:00→20:30)
--- NOTE | 2019-04-20 18:01 | NUR ---
LATE ENTRY FOR 1520 DIET TRAY ORDERED. NO ACUTE DISTRESS NOTED. PT SITTING ON SIDE OF BED TO EAT. ALL SAFETY MEASURES OBTAINED.
--- NOTE | 2019-04-20 18:01 | NUR ---
LATE ENTRY FOR 1445 PT SLEEPING ON HOSP BED. NO ACUTE DISTRESS NOTED. ALL SAFETY MEASURES OBTAINE.D
--- NOTE | 2019-04-20 18:02 | NUR ---
LATE ENTRY FOR 1600 PT ABLE TO USE URINAL WITHOUT ASSISTANCE.
--- NOTE | 2019-04-20 18:04 | NUR ---
LATE ENTRY FOR 1700 PT RESTING ON HOSP BED. NO ACUTE DISTRESS NOTED. ALL SAFETY MEASURES OBTAINED. SITTER AT DOORWAY. NO NEEDS REQUSTED AT THIS TIME.
--- NOTE | 2019-04-20 18:35 | NUR ---
DIET TRAY DELIVERED. PT SITTING ON SIDE OF HOSP BED. NO ACUTE DISTRESS NOTED. ALL SAFETY MEASURES OBTAINED. SITTER AT DOORWAY
--- NOTE | 2019-04-20 18:59 | NUR ---
BEDSIDE REPORT TO CLARISSA MARTINEZ.
--- NOTE | 2019-04-20 19:00 | NUR ---
received report from CLARISSA Colmenares. patient trying to get up on bed, sitter at bedside assisting patient.
--- NOTE | 2019-04-20 20:00 | NUR ---
patient sleeping at this time. will continue to monitor.
[2019-04-20] MEDS ORDERED: APIXABAN 5 MG TABLET ONE (20:25)
[2019-04-20] MEDS ORDERED: NICOTINE 21 MG/24 HR PATCH.TD24 ONE (20:25)
[2019-04-20] MEDS ORDERED: TRAZODONE 50MG TABLET ONE (20:25)
[2019-04-20] MEDS: NICOTINE 21 MG/24 HR PATCH.TD24 TD SCH (20:31)
[2019-04-20] MEDS: APIXABAN 5 MG TABLET PO SCH (20:33)
[2019-04-20] MEDS: TRAZODONE 100MG TABLET PO SCH (20:33)
[2019-04-20] MEDS ORDERED: TRAZODONE 100MG TABLET PO SCH (21:00)
[2019-04-20] MEDS ORDERED: DIVALPROEX 125 MG TABLET.DR PO SCH (21:00)
[2019-04-20] MEDS ORDERED: APIXABAN 5 MG TABLET PO SCH (21:00)
--- NOTE | 2019-04-20 21:00 | NUR ---
due medication given. water provided. wound care done.
--- NOTE | 2019-04-20 22:00 | NUR ---
patient sleeping , respiration unlabored. will continue to monitor.
[2019-04-20] MEDS: DIVALPROEX 125 MG TABLET.DR PO SCH (22:03)
[2019-04-20] MEDS: ENOXAPARIN 30 MG/0.3 ML SQ SCH (22:03)
--- NOTE | 2019-04-21 00:23 | NUR ---
no changes. patient sleeping. sitter at the door. will continue to monitor.
--- NOTE | 2019-04-21 02:12 | NUR ---
patient again getting up in bed. re-directed.
--- NOTE | 2019-04-21 03:18 | NUR ---
patient c/o buttocks pain, redness noted. no open wounds. waffle placed on bed for comfort.
--- NOTE | 2019-04-21 07:08 | NUR ---
Pt resting with eyes closed, sitter in direct line of sight. NAD noted.
--- NOTE | 2019-04-21 07:52 | NUR ---
pt found with possible pressure wound to right sacrum, waffle put back on patient bed and rationale for waffle explained to patient. patient verbalized understanding. pt turned to left side and transfer and pumphouse operator chief notified of blanchable wound to right sacram. wound care consult ordered.
--- NOTE | 2019-04-21 08:13 | NUR ---
pt up to chair per iram thompson, and kalyani angel. wound care to sacral wound completed by magali walden. pt eating breakfast. morning meds ordered from pharmacy.
--- NOTE | 2019-04-21 08:15 | NUR ---
Wyatt carl in [facility] - 04/21/19 at 0931 by CALLY URINE SENT, FAMILY AT
[2019-04-21] MEDS: DIVALPROEX 125 MG TABLET.DR PO SCH ×2 (08:45→20:55)
[2019-04-21] MEDS: ENOXAPARIN 30 MG/0.3 ML SQ SCH (08:45)
[2019-04-21] MEDS: APIXABAN 5 MG TABLET PO SCH ×2 (08:45→20:56)
[2019-04-21] MEDS: TAMSULOSIN 0.4 MG CAP.ER.24H PO SCH (08:46)
[2019-04-21] MEDS: NITROFURANTOIN (MACROBID) 100 MG CAPSULE PO SCH ×2 (08:46→20:56)
[2019-04-21] MEDS ORDERED: TAMSULOSIN 0.4 MG CAP.ER.24H PO SCH (09:00)
--- NOTE | 2019-04-21 09:25 | NUR ---
Pt ambulating around ER with assistance of INFRASTRUCTURE DIRECTOR.
--- NOTE | 2019-04-21 10:22 | NUR ---
Pt moved from chair to bed x1 assist.
--- NOTE | 2019-04-21 11:34 | NUR ---
pt seen by phsyciatric BAG MAKING MACHINE OPERATOR.
--- NOTE | 2019-04-21 13:28 | NUR ---
sent med request to pharmacy for zoloft Addendum: 04/21/19 at 1329 by YARELY lunch meal tray provided, patient up to chair x1.
[2019-04-21] MEDS ORDERED: FOSFOMYCIN 3 GM PACKET PO ONE (13:30)
--- NOTE | 2019-04-21 14:11 | NUR ---
Pt in bed, sitter continues at bedside. Denies any needs at this time.
[2019-04-21] MEDS: SERTRALINE 50MG TABLET PO SCH (14:21)
--- NOTE | 2019-04-21 14:37 | NUR ---
pt moving from bed to chair and back to bed frequently with sitter assist. antibiotic requested from pharmacy.
[2019-04-21] MEDS ORDERED: FOSFOMYCIN 3 GM PACKET ONE (15:07)
[2019-04-21] MEDS ORDERED: CYCLOBENZAPRINE 10 MG TABLET PO ONE (18:00)
[2019-04-21] MEDS ORDERED: CYCLOBENZAPRINE 10 MG TABLET ONE ×2 (18:02→19:48)
--- NOTE | 2019-04-21 18:15 | NUR ---
pt repositioned and medicated for discomfort.
--- NOTE | 2019-04-21 19:22 | NUR ---
dean reports that pt has a pressure ulcer , wound currently dressed. Dean is aware to turn pt [id number]. Pt finished evening meal, aa and o times 4. Affect flat and one to two word responses. Cooperative at this time. Dean remains at bedside for pt safety
[2019-04-21] MEDS ORDERED: NICOTINE 21 MG/24 HR PATCH.TD24 ONE (19:48)
[2019-04-21] MEDS ORDERED: TRAZODONE 50MG TABLET ONE (19:48)
[2019-04-21] MEDS ORDERED: APIXABAN 5 MG TABLET ONE (19:49)
[2019-04-21] MEDS ORDERED: NITROFURANTOIN (MACROBID) 100 MG CAPSULE ONE (19:49)
[2019-04-21] MEDS ORDERED: ENOXAPARIN 60 MG/0.6 ML ONE (19:49)
--- NOTE | 2019-04-21 20:37 | NUR ---
PT HAS ESBL AND CAN NOT GO TO 3E
[2019-04-21] MEDS: TRAZODONE 100MG TABLET PO SCH (20:55)
[2019-04-21] MEDS: NICOTINE 21 MG/24 HR PATCH.TD24 TD SCH (20:55)
[2019-04-21] MEDS: BACITRACIN/POLYMIXIN B SULFATE OINT 14 GM TP SCH (20:56)
--- NOTE | 2019-04-21 21:07 | NUR ---
EVENING MEDICATIONS GIVEN, STAFF AWARE OF NEED TO REPOSITION PT AT LEAST EVERY TWO HOURS, EXTRA PILLOWS TO ROOM TO ASSIST IN THIS. PT REMAINS ON WAFFLE MATTRESS. DRESSING CHANGED ON WRIST WELL. SITE WITHOUT S/S INFECTION, BACTROBAN OINT, ADAPTIC AND AND WRAP
--- NOTE | 2019-04-21 21:15 | NUR ---
CALL TO HOSPITALIST REGARDING LOVENOX AND ELIQUIS.
--- NOTE | 2019-04-21 21:19 | NUR ---
DR SANDERS NOTES TO CANCEL THE LOVENOX AND CONTINUE WITH THE ELIQUIS.
--- NOTE | 2019-04-21 21:44 | NUR ---
RESTING QUIETLY, SITTER AT BEDSIDE, REMINDED TO HAVE PT TURN Q2.
[2019-04-21] MEDS ORDERED: ALBUTEROL SULFATE 2.5MG/0.5ML ONE (23:49)
--- NOTE | 2019-04-21 23:51 | NUR ---
PT RESTING QUIETLY, SITTER OUTSIDE ROOM FOR PT SAFETY
--- NOTE | 2019-04-22 02:06 | NUR ---
Resting quietly, sitter outside room for pt safety.
--- NOTE | 2019-04-22 03:44 | NUR ---
NO CHANGES, RESTING QUIETLY, SITTER REMAINS WITH PT.
--- NOTE | 2019-04-22 05:58 | NUR ---
Pt up to chair at bedside. Sitter with pt.
--- NOTE | 2019-04-22 06:59 | NUR ---
REPORT FROM DENNIS ROMO, ASSUME CARE OF PT AT THIS TIME. PT SLEEPING, ISOLATION CART AT DOORWAY, SITTER PRESENT.
--- NOTE | 2019-04-22 08:45 | NUR ---
BREAKFAST TRAY PROVIDED. PT COOPERATIVE WITH CARE. SITTER AT DOORWAY.
[2019-04-22] MEDS ORDERED: SERTRALINE 50MG TABLET ONE (09:01)
[2019-04-22] MEDS ORDERED: TAMSULOSIN 0.4 MG CAP.ER.24H ONE (09:01)
[2019-04-22] MEDS ORDERED: NITROFURANTOIN (MACROBID) 100 MG CAPSULE ONE (09:01)
[2019-04-22] MEDS ORDERED: APIXABAN 5 MG TABLET ONE (09:01)
--- NOTE | 2019-04-22 09:14 | NUR ---
PT MEDICATED PER EMAR. MED REQUEST TO PHARM FOR DEPAKOTE DOSE-NOT IN OMNICELL.
[2019-04-22] MEDS: NITROFURANTOIN (MACROBID) 100 MG CAPSULE PO SCH (09:15)
[2019-04-22] MEDS: TAMSULOSIN 0.4 MG CAP.ER.24H PO SCH (09:15)
[2019-04-22] MEDS: APIXABAN 5 MG TABLET PO SCH (09:15)
[2019-04-22] MEDS: SERTRALINE 50MG TABLET PO SCH (09:15)
[2019-04-22] MEDS: DIVALPROEX 125 MG TABLET.DR PO SCH (09:53)
--- NOTE | 2019-04-22 09:54 | NUR ---
RICHY RECEIVED FROM PHARM, PROVIDED TO PT. PT REPOSITIONED TO LEFT SIDE ON WAFFLE MATTRESS, LIGHTS DIMMED PER REQUEST. PT STATES HE'S COMFORTABLE. SITTER REMAINS AT DOORWAY.
--- NOTE | 2019-04-22 10:15 | NUR ---
WITH SITTER, PT ASSISTED UP TO CHAIR PER REQUEST. PT WASHED FACE, WANTS TO WATCH TV. SITTER AT DOORWAY.
--- NOTE | 2019-04-22 10:44 | NUR ---
PT BACK TO BED, LYING ON R SIDE. SITTER AT DOORWAY.
--- NOTE | 2019-04-22 11:45 | NUR ---
PT RESTING, EYES CLOSED, NAD. SITTER AT DOORWAY.
--- NOTE | 2019-04-22 12:16 | NUR ---
MEAL TRAY PROVIDED. SITTER AT DOORWAY. PT COOPERATIVE WITH CARE AT THIS TIME.
--- NOTE | 2019-04-22 13:12 | NUR ---
REPORT TO GINA ROMO, TRANSFER OF CARE AT THIS TIME.
--- NOTE | 2019-04-22 13:39 | NUR ---
RECEIVED REPORT FROM MANISH. PT AWAKE, EATING MEAL. VSS. PT DENIES PAIN OR ANY NEEDS. SITTER AT BS. ROOM SECURED FOR SAFETY.
--- NOTE | 2019-04-22 14:04 | NUR ---
PT UP TO WILLIAM CHAIR, WATCHING TV, VERBALIZED NO NEEDS. SITTER AT BS.
--- NOTE | 2019-04-22 14:23 | NUR ---
PT BACK TO BED, DRESSING CHANGE ON COCCYX. RED, NON BLANCHING OR OPEN AREA.
--- NOTE | 2019-04-22 15:49 | NUR ---
PT SLEEPING RESP EVEN AND UNLABORED, SITTER AT BS
--- NOTE | 2019-04-22 18:00 | NUR ---
PT UP IN CHAIR EATING MEAL, SITTER AT BS, PT VERBALIZED NO NEEDS AT THIS TIME.
--- NOTE | 2019-04-22 18:57 | NUR ---
REPORT RECIEVED FROM CLARISSA FUENTES. JANET AT BEDSIDE. PT RESTING ON GURNEY. KITTER STATES HE IS GOING TO TAKE THE PT FOR A WALK IN THE HALLWAY
--- NOTE | 2019-04-22 19:01 | NUR ---
REPORT TO DEBORAH ROMO, PLAN OF CARE DISCUSSED
[2019-04-22] MEDS: TRAZODONE 100MG TABLET PO SCH (21:00)
--- NOTE | 2019-04-22 22:14 | NUR ---
pt sleeping on jeanmarieLiudmila moran at bedside. Addendum: 04/23/19 at 0518 by [facility]*
--- NOTE | 2019-04-23 00:46 | NUR ---
pt sleeping on jeanmarieLiudmila moran at bedside. Addendum: 04/23/19 at 0519 by [facility]*
--- NOTE | 2019-04-23 01:38 | NUR ---
SPOKE TO EDUARDO FROM [facility] WHO STATES PT STILL HAS SEVERAL OTHER PATIENTS INFRONT OF HIM HOWEVER THEY WILL ACCEPT HIM EVENTUALLY.
--- NOTE | 2019-04-23 02:28 | NUR ---
pt sleeping on uchesanjeev. Addendum: 04/23/19 at 0331 by RENE SITTER AT BEDSIDE.
--- NOTE | 2019-04-23 03:30 | NUR ---
PT AMBULATORY TO CHAIR WITH ASSIST OF SITTER
--- NOTE | 2019-04-23 05:19 | NUR ---
PT SLEEPING ON HOSPITAL BED. SITTER AT BEDSIDE
--- NOTE | 2019-04-23 06:28 | NUR ---
PT SLEEPING ON HOSPITAL BED. SITTER AT BEDSIDE
--- NOTE | 2019-04-23 07:50 | NUR ---
PT UP TO SHOWER WITH SITTER ESCORT. PT STEADY ON FEET AND COMPLETED SHOWER INDEPENDENTLY. PT PERFORMED ADLS INDEPENDENTLY
[2019-04-23] MEDS ORDERED: NICOTINE 21 MG/24 HR PATCH.TD24 ONE ×2 (08:22→20:42)
[2019-04-23] MEDS ORDERED: SERTRALINE 50MG TABLET ONE (08:24)
[2019-04-23] MEDS: NITROFURANTOIN (MACROBID) 100 MG CAPSULE PO SCH ×3 (08:29→21:26)
[2019-04-23] MEDS: TAMSULOSIN 0.4 MG CAP.ER.24H PO SCH (08:29)
[2019-04-23] MEDS: DIVALPROEX 125 MG TABLET.DR PO SCH ×3 (08:29→21:25)
[2019-04-23] MEDS: APIXABAN 5 MG TABLET PO SCH ×3 (08:29→21:26)
[2019-04-23] MEDS: NICOTINE 21 MG/24 HR PATCH.TD24 TD SCH ×2 (08:30→21:30)
[2019-04-23] MEDS: SERTRALINE 50MG TABLET PO SCH (08:31)
[2019-04-23] MEDS: BACITRACIN/POLYMIXIN B SULFATE OINT 14 GM TP SCH (08:32)
--- NOTE | 2019-04-23 08:36 | NUR ---
PT MEDICATED PER MAR, ASSISTED UP TO CHAIR WITH 1PA. SITTER IN VIEW OF PT, SUICIDE PRECAUTIONS IN PLACE,
--- NOTE | 2019-04-23 09:24 | NUR ---
MEAL TRAY PROVIDED. PT OOB TO SIT UP IN CHAIR FOR MEAL. SITTER AT DOORWAY WITH PT IN VIEW.
--- NOTE | 2019-04-23 10:53 | NUR ---
LATE ENTRY 1030, DR MANTILLA AT BEDSIDE. LEFT WRIST LACERATION WITH SUTURES ASSESSED. DR MANTILLA WANTS WOUND RECHECKED AGAIN IN 24 HRS.
--- NOTE | 2019-04-23 14:18 | NUR ---
BREAK RN: PT SLEEPING, NO NEEDS, WILL CONTINUE TO MONITOR. SITTER AT BEDSIDE.
--- NOTE | 2019-04-23 16:35 | NUR ---
SPOKE WITH MICHAEL SMITH WITH [employer] AND GIVEN UPDATE. HIS CONTACT INFO IS [phone]
--- NOTE | 2019-04-23 17:40 | NUR ---
PT GIVEN DINNER TRAY, DENIES PAIN, NO NEEDS AT THIS TIME, SITTER REMAINS IN PLACE
--- NOTE | 2019-04-23 19:12 | NUR ---
REPORT GIVEN TO GURDEEP ROMO
--- NOTE | 2019-04-23 19:16 | NUR ---
RECEIVED BS REPORT FROM CLARISSA PANG TO ASSUME CARE OF PT. PT. HAS 1:1 SITTER IN DOORWAY. PT. ASSISTED BACK TO BED AND ALL SAFETY MEASURES OBSERVED.
[2019-04-23] MEDS ORDERED: TRAZODONE 50MG TABLET ONE (20:42)
[2019-04-23] MEDS ORDERED: NITROFURANTOIN (MACROBID) 100 MG CAPSULE ONE (20:43)
[2019-04-23] MEDS ORDERED: APIXABAN 5 MG TABLET ONE (20:43)
[2019-04-23] MEDS ORDERED: ACETAMINOPHEN 325 MG TABLET ONE (20:43)
--- NOTE | 2019-04-23 20:46 | NUR ---
MED REQUEST SENT TO PHARMACY. JANET REMAINS IN [place] FOR 1:1. PT. RESTING ON GURNEY WITH NO DISTRESS NOTED.
--- NOTE | 2019-04-23 21:11 | NUR ---
AWAITING MED FROM PHARMACY.
[2019-04-23] MEDS: TRAZODONE 100MG TABLET PO SCH (21:26)
--- NOTE | 2019-04-23 21:35 | NUR ---
PT. MEDICATED PER DEC. PT. WATCHING TV. DENIES OTHER NEEDS AT THIS TIME. VS UPDATED. PT. HAS 1:1 SITTER IN DOORWAY. PT. IS STEADY ON HIS FEET WHEN AMBULATING AROUND ROOM.
--- NOTE | 2019-04-23 22:36 | NUR ---
PT. IS RESTING ON HOSPITAL BED WITH EYES CLOSED. EVEN RESPIRATIONS VISIBLE. NO DISTRESS NOTED. 1:1 SITTER REMAINS IN DOORWAY. ALL SAFETY MEASURES OBSERVED.
--- NOTE | 2019-04-23 22:53 | NUR ---
PT. OUT OF BED AND WALKING AROUND ROOM. PT. RESTLESS. PT. ASSISTED BACK TO BED BY SITTER. PT. COOPERATIVE WITH STAFF.
--- NOTE | 2019-04-24 00:02 | NUR ---
PT. HAS BEEN UP AND DOWN FORM BED OVER THE LAST HOUR. PT. GETS RESTLESS; SITTER ASSISTS PT. BACK TO BED WHERE HE STAYS ONLY FOR SHORT PERIODS OF TIME.
[2019-04-24] MEDS ORDERED: ZOLPIDEM 5MG TABLET ONE (00:03)
[2019-04-24] MEDS: ZOLPIDEM 5MG TABLET PO PRN (00:34)
--- NOTE | 2019-04-24 00:35 | NUR ---
PT. MEDICATED PER MAR PT. CONTINUES TO BE RESTLESS/UNABLE TO SLEEP.
--- NOTE | 2019-04-24 01:46 | NUR ---
PT. RESTING ON BED WITH EYES CLOSED. EVEN NON-LABORED RESPIRATIONS VISIBLE. 1:1 SITTER IN DOORWAY. ALL SAFETY MEASURES OBSERVED.
--- NOTE | 2019-04-24 02:39 | NUR ---
PT. RESTING ON BED WITH EYES CLOSED. NADN. EVEN, NON-LABORED RESPIRATIONS VISIBLE. ALL SAFETY MEASURES MAINTAINED. 1:1 SITTER IN DOORWAY.
--- NOTE | 2019-04-24 03:42 | NUR ---
PT. CONTINUES RESTING ON BED WITH EYES CLOSED. EVEN, NON-LABORED RESPIRATIONS VISIBLE. NO DISTRESS NOTED. 1:1 SITTER REMAINS IN DOORWAY. ALL SAFETY MEASURES MAINTAINED.
--- NOTE | 2019-04-24 04:43 | NUR ---
PT. CONTINUES RESTING ON BED WITH EVEN RESP VISIBLE. 1:1 SITTER IN DOORWAY.
--- NOTE | 2019-04-24 06:58 | NUR ---
PT. CONTINUES RESTING ON BED WITH EYES CLOSED. EVEN CHEST RISE/FALL VISIBLE. SITTER IN DOORWAY. REPORT TO HARRY Tejada RN.
--- NOTE | 2019-04-24 07:10 | NUR ---
PT RESTING IN BED WITH SITTER IN PLACE, VISIBLE CHEST RISE NOTED, NAD NOTED
[2019-04-24] MEDS ORDERED: SERTRALINE 50MG TABLET ONE (07:25)
[2019-04-24] MEDS ORDERED: NITROFURANTOIN (MACROBID) 100 MG CAPSULE ONE ×2 (07:25→20:46)
[2019-04-24] MEDS ORDERED: TAMSULOSIN 0.4 MG CAP.ER.24H ONE (07:25)
[2019-04-24] MEDS ORDERED: APIXABAN 5 MG TABLET ONE ×2 (07:25→20:47)
[2019-04-24] MEDS: DIVALPROEX 125 MG TABLET.DR PO SCH ×2 (08:08→21:14)
[2019-04-24] MEDS: SERTRALINE 50MG TABLET PO SCH (08:09)
[2019-04-24] MEDS: APIXABAN 5 MG TABLET PO SCH ×2 (08:09→21:14)
[2019-04-24] MEDS: TAMSULOSIN 0.4 MG CAP.ER.24H PO SCH (08:09)
[2019-04-24] MEDS: BACITRACIN/POLYMIXIN B SULFATE OINT 14 GM TP SCH (08:09)
[2019-04-24] MEDS: NITROFURANTOIN (MACROBID) 100 MG CAPSULE PO SCH ×2 (08:09→21:14)
--- NOTE | 2019-04-24 08:28 | NUR ---
PT GIVEN BREAKFAST TRAY, ASSISTED UP TO CHAIR. PT SLIGHTLY AGITATED, DID NOT WANT BP TAKEN. WILL ATTEMPT AT LATER TIME. MEDICATED PER MAR. SUICIDE PRECAUTIONS IN PLACE, PT WITH 1:1 SITTER. NAD NOTED.
--- NOTE | 2019-04-24 11:01 | NUR ---
1 person assist from bed to chair. Call light & urinal within reach. Sitter sitting outside doorway maintaining 1:1 visualization.
--- NOTE | 2019-04-24 11:30 | NUR ---
LAQUITA LOZANO UPDATED THIS RN, PT LEGAL HOLD WAS EXTENDED FOR ONE WEEK. PT IS STILL ACCEPTED BY [facility], AWAITING BED
--- NOTE | 2019-04-24 12:30 | NUR ---
PT GIVEN LUNCH TRAY. ASSISTED TO CHAIR AND GIVEN A WARM BLANKET. SITTER REMAINS IN PLACE, NAD
--- NOTE | 2019-04-24 14:27 | NUR ---
Pt OOB to chair, with assist of PSA. Provided w/ water, remains cooperative.
--- NOTE | 2019-04-24 15:30 | NUR ---
PT RESTING IN HOSPITAL BED. NAD. PT IN VIEW OF SITTER. NO NEEDS AT THIS TIME
--- NOTE | 2019-04-24 16:33 | NUR ---
PT VOIDED IN URINAL, ADDITIONAL WARM BLANKET PROVIDED, NO OTHER NEEDS AT THIS TIME
--- NOTE | 2019-04-24 17:52 | NUR ---
PT GIVEN MEAL TRAY, UP TO CHAIR FOR MEAL. SITTER REMAINS IN PLACE. PT CALM AND COOPERATIVE, NO NEEDS AT THIS TIME
--- NOTE | 2019-04-24 18:59 | NUR ---
SBAR REPORT GIVEN TO NOC RNS
--- NOTE | 2019-04-24 19:03 | NUR ---
report recieved from eula vaca
--- NOTE | 2019-04-24 19:20 | NUR ---
PT RESTING ON HOSPITAL BED, SITTER AT BEDSIDE
[2019-04-24] MEDS ORDERED: NICOTINE 21 MG/24 HR PATCH.TD24 ONE (20:46)
[2019-04-24] MEDS ORDERED: TRAZODONE 50MG TABLET ONE (20:46)
[2019-04-24] MEDS: TRAZODONE 100MG TABLET PO SCH (21:15)
[2019-04-24] MEDS: NICOTINE 21 MG/24 HR PATCH.TD24 TD SCH (21:17)
--- NOTE | 2019-04-24 21:19 | NUR ---
PT RESTING ON GURNEY AND MEDICATED PER EMAR. PT STATES HE DOES NOT WANT ANOTHER NICOTINE PATCH. OLD PATCH REMOVED BY THIS RN. PT STATES HE SOMETIMES HAS THOUGHT ABOUT HURTING HIMSELF BUT DENIES A PLAN
--- NOTE | 2019-04-24 22:51 | NUR ---
pt sleeping. sitter at bedside
--- NOTE | 2019-04-25 | NUR ---
pt sleeping. sitter at bedside
--- NOTE | 2019-04-25 01:00 | NUR ---
pt sleeping. sitter at bedside
--- NOTE | 2019-04-25 02:00 | NUR ---
pt up to chair. sitter at bedside
--- NOTE | 2019-04-25 03:00 | NUR ---
pt sleeping. sitter at bedside
--- NOTE | 2019-04-25 04:00 | NUR ---
pt sleeping. sitter at bedside
--- NOTE | 2019-04-25 04:48 | NUR ---
pt sleeping. sitter at bedside
--- NOTE | 2019-04-25 05:42 | NUR ---
pt sleeping. sitter at bedside
--- NOTE | 2019-04-25 08:12 | NUR ---
vss stable sitter is at door pt is sleeping unable to assess suicidal assessment at this time will give breakfast with morning medication per md order on the mar
[2019-04-25] MEDS ORDERED: TAMSULOSIN 0.4 MG CAP.ER.24H ONE (08:25)
[2019-04-25] MEDS ORDERED: NITROFURANTOIN (MACROBID) 100 MG CAPSULE ONE ×2 (08:25→20:42)
[2019-04-25] MEDS ORDERED: APIXABAN 5 MG TABLET ONE ×2 (08:26→20:42)
[2019-04-25] MEDS ORDERED: SERTRALINE 50MG TABLET ONE (08:26)
[2019-04-25] MEDS: APIXABAN 5 MG TABLET PO SCH ×2 (08:46→20:55)
[2019-04-25] MEDS: SERTRALINE 50MG TABLET PO SCH (08:46)
[2019-04-25] MEDS: NITROFURANTOIN (MACROBID) 100 MG CAPSULE PO SCH ×2 (08:46→20:55)
[2019-04-25] MEDS: BACITRACIN/POLYMIXIN B SULFATE OINT 14 GM TP SCH (08:46)
[2019-04-25] MEDS: TAMSULOSIN 0.4 MG CAP.ER.24H PO SCH (08:46)
[2019-04-25] MEDS: DIVALPROEX 125 MG TABLET.DR PO SCH ×2 (08:47→20:54)
--- NOTE | 2019-04-25 09:13 | NUR ---
physical assessment performed pt's coccyx wasnot blanchable at bony site cleaned applied foam dressing wound care consult was ordered no responding from learning and development analyst yet left wrist dressing was sticked on the surface suture site . carefully wet the dressing and was able to off orinal dressing no adapt gauze noted cleaned wound cleanser noted slight open site noted notified dr porter buenrostro would see the wound site dressing was applied
--- NOTE | 2019-04-25 09:16 | NUR ---
suicial assessment was asked to pt pt denied any suicidal plan but has still suicidal ideation occasionally pt was sitting up and eating breakfast no other discomfort at this time sitter at door
--- NOTE | 2019-04-25 09:50 | NUR ---
SBAR FROM JARRETT, RN. PT CARE ASSUMED. PT SLEEPING ON HOSP BED W/ SIDE RAILS UP X2, ISOLATION CART OUTSIDE ROOM, SITTER AT DOORWAY. PT RESP EVEN & UNLABORED, CLEAN DRESSING ON LT WRIST. PER JARRETT, MULTIPLE UNSUCCESSFUL ATTEMPTS TO CONTACT WOUND CARE RE: COCCYX WOUND; THIS RN WILL CONTINUE ATTEMPTS.
--- NOTE | 2019-04-25 10:05 | NUR ---
CALLED WOUND CARE EXT [phone] - LEFT MESSAGE W/ REASON FOR CALL & REQUESTED RETURN CALL.
--- NOTE | 2019-04-25 10:30 | NUR ---
PER SITTER, WOUND CARE PERSON WAS JUST IN PT ROOM TO EXAMINE WOUND; BASIC WOUND CARE FOR COCCYX.
--- NOTE | 2019-04-25 11:48 | NUR ---
PT SLEEPING, EVEN CHEST RISE & FALL NOTED. SITTER AT DOORWAY; STATES PT WALKED AROUND ROOM A LITTLE BIT, WASHED HIS FACE, VOIDED AND RETURNED TO BED.
--- NOTE | 2019-04-25 12:09 | NUR ---
PT ASSISTED TO CHAIR PER SITTER. PT COOPERATIVE, RESP EVEN & UNLABORED, SPEECH CLEAR. WILL ORDER LUNCH TRAY.
--- NOTE | 2019-04-25 13:00 | NUR ---
PT RESTING W/ TV ON. SITTER AT DOOR WAY.
--- NOTE | 2019-04-25 14:05 | NUR ---
PT OBSERVED AMBULATORY IN ROOM. SITTER AT DOOR WAY
--- NOTE | 2019-04-25 15:00 | NUR ---
PT RESTING ON BED, WATCHING TV. WATER PROVIDED. SITTER AT DOOR WAY
--- NOTE | 2019-04-25 16:15 | NUR ---
PT SITTING IN ROOM CHAIR. URINAL EMPTIED & RETURNED TO PT. SITTER AT DOOR WAY.
--- NOTE | 2019-04-25 17:27 | NUR ---
DINNER TRAY ORDERED.
--- NOTE | 2019-04-25 17:44 | NUR ---
PT SITTING IN CHAIR IN ROOM. SITTER AT DOOR WAY. PT CARE TO BE ASSUMED BY ROBERTA LEONG RN.
--- NOTE | 2019-04-25 18:21 | NUR ---
REPORT TO AMAN ROMO
--- NOTE | 2019-04-25 18:27 | NUR ---
PT SUPINE ON BED, SIDE RAILS UP X2, TV ON, SITTER AT DOORWAY.
--- NOTE | 2019-04-25 19:15 | NUR ---
ASSISTED PT W/ STRAIGHTENING BED LINENS. NO ADDITIONAL NEEDS AT THIS TIME. SITTER AT DOOR WAY.
--- NOTE | 2019-04-25 19:23 | NUR ---
LAQUITA, RESIST COATER DEVELOPER, AT BS
--- NOTE | 2019-04-25 19:25 | NUR ---
PER LAQUITA, PT TO BE DISCHARGED TOMORROW. LEGAL HOLD DECERTIFIED BY YUE RIOS APRN. PT TO BE PICKED UP TOMORROW BY [facility]. WILL NOTIFY ONCOMING RN AT SHIFT CHANGE.
[2019-04-25] MEDS ORDERED: NICOTINE 21 MG/24 HR PATCH.TD24 ONE (19:53)
[2019-04-25] MEDS: NICOTINE 21 MG/24 HR PATCH.TD24 TD SCH (20:09)
--- NOTE | 2019-04-25 20:25 | NUR ---
PT RESTING IN ROOM. URINAL EMPTIED & RETURNED TO PT.
[2019-04-25] MEDS ORDERED: TRAZODONE 50MG TABLET ONE (20:41)
[2019-04-25] MEDS: TRAZODONE 100MG TABLET PO SCH (20:57)
--- NOTE | 2019-04-25 21:05 | NUR ---
PT RESTING QUIETLY ON BED, WATCHING TV, CALL LIGHT W/IN REACH, CUP OF WATER ON TABLE. MEDS GIVEN PER EMAR: DEPAKOTE, DESYREL, ELIQUIS, MACROBID. SITTER OUTSIDE ROOM.
--- NOTE | 2019-04-25 21:52 | NUR ---
STANDING IN ROOM. TV ON. SITTER AT DOOR WAY
--- NOTE | 2019-04-25 21:55 | NUR ---
PT REPORT TO CLARISSA BETHEA. PT CARE TRANSFERRED.
--- NOTE | 2019-04-25 21:58 | NUR ---
REPORT FROM AMAN ROMO. PT LAYING BED WITH NO NEEDS AT THIS TIME. SITTER IN VIEW OF PT.
--- NOTE | 2019-04-25 23:08 | NUR ---
PT SLEEPING. EVEN RISE AND FALL OF CHEST OBSERVED. SITTER IN VIEW OF PT.
--- NOTE | 2019-04-26 00:42 | NUR ---
PT SLEEPING. EVEN RISE AND FALL OF CHEST OBSERVED. SITTER IN VIEW OF PT.
--- NOTE | 2019-04-26 02:01 | NUR ---
PT SITTING IN CHAIR WATCHING TV, SITTER IN VIEW OF PT.
--- NOTE | 2019-04-26 02:41 | NUR ---
PT SLEEPING. EVEN RISE AND FALL OF CHEST OBSERVED. PT IN NAD. SITTER IN VIEW OF PT.
--- NOTE | 2019-04-26 05:14 | NUR ---
PT SITTING IN CHAIR WATCHING TV, SITTER IN VIEW OF PT.
--- NOTE | 2019-04-26 06:17 | NUR ---
PT SLEEPING. PT IN NAD. PT TO BE DISCHARGED IN AM. SITTER IN VIEW OF PT.
--- NOTE | 2019-04-26 07:04 | NUR ---
RECEIVED REPORT FROM CLARISSA BETHEA. ASSUMED CARE OF PATIENT. PATIENT SNORING LOUDLY, SITTER OUTSIDE ROOM.
[2019-04-26] MEDS: DIVALPROEX 125 MG TABLET.DR PO SCH ×2 (09:00→21:30)
[2019-04-26] MEDS: BACITRACIN/POLYMIXIN B SULFATE OINT 14 GM TP SCH (09:00)
--- NOTE | 2019-04-26 09:07 | NUR ---
PT UP TO CHAIR, EATING BREAKFAST.
--- NOTE | 2019-04-26 11:07 | NUR ---
BEDSIDE REPORT FROM TYRONE ROMO, PT RESTING IN HOSPITAL BED WITH SITTER AT BEDSIDE. PT TO BE DISCHARGED TODAY. TYRONE ROMO TO ORDER/GIVE AM MEDICAITONS
[2019-04-26] MEDS ORDERED: APIXABAN 5 MG TABLET ONE ×2 (11:27→21:13)
[2019-04-26] MEDS ORDERED: TAMSULOSIN 0.4 MG CAP.ER.24H ONE (11:27)
[2019-04-26] MEDS ORDERED: NITROFURANTOIN (MACROBID) 100 MG CAPSULE ONE ×3 (11:27→21:13)
[2019-04-26] MEDS ORDERED: SERTRALINE 50MG TABLET ONE (11:27)
[2019-04-26] MEDS: TAMSULOSIN 0.4 MG CAP.ER.24H PO SCH (11:32)
[2019-04-26] MEDS: SERTRALINE 50MG TABLET PO SCH (11:33)
[2019-04-26] MEDS: APIXABAN 5 MG TABLET PO SCH ×2 (11:33→21:30)
[2019-04-26] MEDS: NITROFURANTOIN (MACROBID) 100 MG CAPSULE PO SCH ×2 (11:38→21:30)
--- NOTE | 2019-04-26 11:50 | NUR ---
STUNT MAN NOTIFIED PT IS DENIED TO GO BACK TO LONGTERM. SW/THROUGHPUT RN WORKING ON PT PLACEMENT
--- NOTE | 2019-04-26 12:46 | NUR ---
pt sleeping in hospital bed, nad, equal chest rise and fall. awaiting long-term placement
--- NOTE | 2019-04-26 14:01 | NUR ---
pt sleeping in hospital bed, nad, equal chest rise and fall. no needs at this time
--- NOTE | 2019-04-26 15:01 | NUR ---
pt sleeping in hospital bed, nad, equal chest rise and fall. sitter at bedside. no needs at this time
--- NOTE | 2019-04-26 15:13 | NUR ---
THROUGHPUT RN: SPOKE / JANUARY, [facility] WHO STATES EPS HAS REACHED OUT TO 2 DIFFERENT GROUP HOMES. PT CURRENTLY AWAITING PT AT NURSING HOME. THEY MAY COME VISIT PT IN ED. [facility] TO UPDATE.
--- NOTE | 2019-04-26 16:05 | NUR ---
SITTER GIVEN WHEELCHAIR TO TAKE PT OUTSIDE PER REQUEST. PT AWAITING RESIDENTIAL PLACEMENT
--- NOTE | 2019-04-26 17:08 | NUR ---
PT GIVEN DINNER TRAY, PT UPDATED ON POC. AWAITING IN-PERSON EVAL FROM 2 GROUP HOMES
--- NOTE | 2019-04-26 18:14 | NUR ---
RETURNED FROM BREAK, NO UPDATES PER BREAK RN. PT RESTING IN BED WATCHING TV. CALL LIGHT WITHIN REACH
--- NOTE | 2019-04-26 19:05 | NUR ---
PT RESTING IN GURNEY WITH SITTER AT BEDSIDE, NO NEEDS AT THIS TIME. CALL LIGHT WITHIN REACH
--- NOTE | 2019-04-26 19:43 | NUR ---
SPOKE WITH JANUARY FROM [facility], PT HAS BEEN REFERRED TO SEVERAL GROUP HOMES AND THEY ARE TO COME EVALUATE PT IN PERSON WITHIN THE NEXT FEW DAYS, POSSILBLY LATE TUESDAY. PT AND LAUNDROMAT WORKER UPDATED. [facility] WILL INFORM US WHEN RETIREMENT HAS A TIME THEY WILL COME FOR EVAL.
--- NOTE | 2019-04-26 20:04 | NUR ---
PT FREQUENTLY UP FOLDING BLANKETS AND TALKING TO STAFF. PT CALM AND COMPLIANT. NO NEEDS AT THIS TIME.
[2019-04-26] MEDS: TRAZODONE 100MG TABLET PO SCH (21:00)
--- NOTE | 2019-04-26 21:07 | NUR ---
MEDS ORDERED FROM PHARMACY. PT SLEEPING IN HOSPITAL BED. WASH HOUSE WORKER AT DOORWAY
[2019-04-26] MEDS ORDERED: TRAZODONE 50MG TABLET ONE (21:13)
[2019-04-26] MEDS ORDERED: NICOTINE 21 MG/24 HR PATCH.TD24 ONE (21:13)
[2019-04-26] MEDS: NICOTINE 21 MG/24 HR PATCH.TD24 TD SCH (21:30)
--- NOTE | 2019-04-26 21:42 | NUR ---
PT MEDICATED PER DEC. PT SLEEPING IN BED WITH SITTER AT DOORWAY. VSS. NO NEEDS AT THIS TIME
--- NOTE | 2019-04-26 22:55 | NUR ---
PT SLEEPING IN BED WITH SITTER AT DOORWAY. EQUAL CHEST RISE AND FALL. NO NEEDS AT THIS TIME
--- NOTE | 2019-04-26 23:35 | NUR ---
PT RESTING WITH EYES CLOSED, OPENS EYES EASILY TO VERBAL RESPONSE, DENIES NEEDS, RESPIRATIONS EVEN AND UNLABORED, ISOLATION PRECAUTIONS MAINTAINED, ROOM SECURED, SITTER AT DOORWAY FOR CONTINOUS MONITORING
--- NOTE | 2019-04-27 00:37 | NUR ---
NO CHANGES, SITTER FOR PT SAFETY
--- NOTE | 2019-04-27 01:03 | NUR ---
PT ASSISTED FROM CHAIR BACK TO BED. DRESSING CHANGE TO LEFT WRIST COMPLETED. PT RESTING CALMLY DENIES NEEDS AT THIS TIME, ROOM SECURED, SITTER AT DOORWAY FOR CONTINOUS MONITORING
--- NOTE | 2019-04-27 02:09 | NUR ---
PT RESTING IN BED WITH EYES CLOSED, NAD, EQUAL CHEST RISE/FALL OBSERVED, SITTER AT DOORWAY FOR CONTINOUS MONITORING
--- NOTE | 2019-04-27 03:04 | NUR ---
PT RESTING IN BED WITH EYES CLOSED, NOTED PT REPOSITIONED SELF, EQUAL CHEST RISE/FALL OBSERVED, SITTER AT DOORWAY FOR CONTINOUS MONITORING
--- NOTE | 2019-04-27 03:30 | NUR ---
PT UP TO CHAIR WITH ASSISTANCE OF SITTER, DENIES FURTHER NEEDS, SITTER REMAINS AT DOORWAY FOR CONTINOUS MONITORING
--- NOTE | 2019-04-27 04:11 | NUR ---
PT ASSISTED BACK TO BED X 1 ASSIST, SACRUM WOUND CLEANSED WITH WOUND CLEANSER AND OPTIFOAM DRSG APPLIED, WAFFLE MAT REMAINS IN USE, PT CONTINUES TO BE ASSISTED WITH Q 2 HOUR TURNS PER SITTER AND THIS RN. PROVIDED PT WITH WARM BLANKET, SITTER AT DOORWAY FOR CONTINOUS MONITORING
--- NOTE | 2019-04-27 05:10 | NUR ---
PT RESTING IN BED WITH EYES CLOSED, NOTED PT REPOSITIONED SELF, EQUAL CHEST RISE/FALL OBSERVED, SITTER AT DOORWAY FOR CONTINOUS MONITORING
--- NOTE | 2019-04-27 06:21 | NUR ---
PT RESTING IN BED WITH EYES CLOSED, NAD, EQUAL CHEST RISE/FALL OBSERVED, SITTER AT DOORWAY FOR CONTINOUS MONITORING
--- NOTE | 2019-04-27 07:00 | NUR ---
REPORT GIVEN TO CLARISSA JACKSON
--- NOTE | 2019-04-27 07:26 | NUR ---
PT ASLEEP AT THIS TIME, CHEST RISE AND FALL OBSERVED. SITTER AT BS. WILL CONT TO MONITOR
[2019-04-27] MEDS ORDERED: NITROFURANTOIN (MACROBID) 100 MG CAPSULE ONE ×2 (07:53→20:37)
[2019-04-27] MEDS ORDERED: APIXABAN 5 MG TABLET ONE ×2 (07:53→20:37)
[2019-04-27] MEDS ORDERED: SERTRALINE 50MG TABLET ONE (07:53)
[2019-04-27] MEDS ORDERED: TAMSULOSIN 0.4 MG CAP.ER.24H ONE (07:53)
[2019-04-27] MEDS: APIXABAN 5 MG TABLET PO SCH ×2 (08:15→21:03)
[2019-04-27] MEDS: DIVALPROEX 125 MG TABLET.DR PO SCH ×2 (08:15→21:02)
[2019-04-27] MEDS: NITROFURANTOIN (MACROBID) 100 MG CAPSULE PO SCH ×2 (08:16→21:03)
[2019-04-27] MEDS: SERTRALINE 50MG TABLET PO SCH (08:16)
[2019-04-27] MEDS: TAMSULOSIN 0.4 MG CAP.ER.24H PO SCH (08:16)
[2019-04-27] MEDS: BACITRACIN/POLYMIXIN B SULFATE OINT 14 GM TP SCH (08:17)
--- NOTE | 2019-04-27 08:18 | NUR ---
task rn: medicated per emar provided with breakfast Communicated estimated poc
--- NOTE | 2019-04-27 08:36 | NUR ---
task rn: patient up to bedside chair with standby assist left wrist wound cleansed and dressed with abx cream then telfa dressing
--- NOTE | 2019-04-27 08:47 | NUR ---
Pt sheets changed, washed his face. up eating breakfast
--- NOTE | 2019-04-27 09:00 | NUR ---
Pt has order for q 2 turns. Pt is turning self in bed, pt ambulatory in room. Pt up to chair frequently.
--- NOTE | 2019-04-27 10:03 | NUR ---
Pt asleep, chest rise and fall observed, sitter at BS
--- NOTE | 2019-04-27 11:09 | NUR ---
Called January from Social work who states that she has called 5 group homes today and left messages and no one has picked up. Will let this RN know if she hears back from any of them.
--- NOTE | 2019-04-27 11:51 | NUR ---
Dressing changed on coccyx as ordered. Pt has blanchable red on spine and shoulders, Q [address] while asleep, pt out of bed and in chair at this time
--- NOTE | 2019-04-27 13:21 | NUR ---
pt resting in hospital bed, no acute s/s of distress. sitter monitoring from [facility]
--- NOTE | 2019-04-27 13:51 | NUR ---
Pillow placed under left side pt while lying flat in bed. Waffle mattress in place, 500 mls clear yellow urine emptied from urinal. Pt ate all of lunch tray
--- NOTE | 2019-04-27 14:23 | NUR ---
Pt up to chair independently, steady gait
--- NOTE | 2019-04-27 16:12 | NUR ---
Pt asleep, chest rise and fall observed. Sitter at BS. Pillow under right hip while in bed lying flat
--- NOTE | 2019-04-27 17:19 | NUR ---
Pt given snack and juice. Dinner ordered. Up in chair
--- NOTE | 2019-04-27 18:11 | NUR ---
Pt ate all of dinner. Sitting up in chair, very pleasant. Pt calm and cooperative all day. No additional needs at this time. Sitter at BS
--- NOTE | 2019-04-27 18:52 | NUR ---
Report to Matti ROMO
--- NOTE | 2019-04-27 18:56 | NUR ---
Assumed care from CLARISSA Alvarado
--- NOTE | 2019-04-27 19:40 | NUR ---
Patient given snack. VS's all within normal range. Pt is cooperative with all nursing care.
[2019-04-27] MEDS ORDERED: TRAZODONE 50MG TABLET ONE (20:36)
[2019-04-27] MEDS ORDERED: NICOTINE 21 MG/24 HR PATCH.TD24 ONE (20:36)
[2019-04-27] MEDS: TRAZODONE 100MG TABLET PO SCH (21:00)
[2019-04-27] MEDS: NICOTINE 21 MG/24 HR PATCH.TD24 TD SCH (21:02)
--- NOTE | 2019-04-27 21:10 | NUR ---
Patient is currently watching TV and all needs are met. Patient given QHS meds and new nicotine patch. Old patch removed.
--- NOTE | 2019-04-27 22:34 | NUR ---
Patient watching TV. Sitter in doorway. All needs currently met. Will continue to monitor.
--- NOTE | 2019-04-27 23:32 | NUR ---
Pt awake and transferred himself to chair to watch TV. Pt states to nurse al needs are currently met. Sitter in doorway. Will continue to monitor.
--- NOTE | 2019-04-28 00:33 | NUR ---
PT SLEEPING IN BED, EQUAL CHEST RISE AND FALL, SITTER AT DOORWAY. NO NEEDS AT THIS TIME.
--- NOTE | 2019-04-28 01:37 | NUR ---
Pt currently sleeping. Turned patient and Placed pillow under left hip. All bedrails up. Sitter in doorway. All needs met. Will continue to monitor.
--- NOTE | 2019-04-28 02:39 | NUR ---
Patient sleeping. Equal chest rise and fall and No signs of distress. Sitter in doorway for safety. Will continue to monitor.
--- NOTE | 2019-04-28 03:40 | NUR ---
Patient sleeping. Equal chest rise and fall and No signs of distress. Sitter in doorway for safety. Will continue to monitor.
--- NOTE | 2019-04-28 05:01 | NUR ---
Patient got up briefly and sat in chair and then went back to bed. Pt stated neymar all needs were met. Even chest rise and fall. No distress observed. Sitter in doorway.
--- NOTE | 2019-04-28 07:14 | NUR ---
Gave report to CLARISSA Estevez
[2019-04-28] MEDS ORDERED: TAMSULOSIN 0.4 MG CAP.ER.24H ONE (07:40)
[2019-04-28] MEDS ORDERED: NITROFURANTOIN (MACROBID) 100 MG CAPSULE ONE ×2 (07:40→21:05)
--- NOTE | 2019-04-28 08:19 | NUR ---
Patient up in room, in bedside chair and eating breakast.
[2019-04-28] MEDS: DIVALPROEX 125 MG TABLET.DR PO SCH ×2 (09:00→21:12)
[2019-04-28] MEDS: APIXABAN 5 MG TABLET PO SCH ×2 (09:39→21:13)
[2019-04-28] MEDS: TAMSULOSIN 0.4 MG CAP.ER.24H PO SCH (09:40)
[2019-04-28] MEDS: SERTRALINE 50MG TABLET PO SCH (09:41)
[2019-04-28] MEDS: NITROFURANTOIN (MACROBID) 100 MG CAPSULE PO SCH ×2 (09:41→21:13)
--- NOTE | 2019-04-28 10:23 | NUR ---
Patient ate 70% of his breakfast. Up in chair, took his morning medication. Dressing on left arm and back intact. States he feels fine, denies depression, pain. Moves very slowly and goes from bed to chair with standby staff.
--- NOTE | 2019-04-28 12:29 | NUR ---
Patient is up in chair intermittently. Ate snack - goes back to bed and dozes. Sitter continues with patient.
--- NOTE | 2019-04-28 12:45 | NUR ---
PT IN ROOM RESTING ON CHAIR. NO NEEDS AT THIS TIME. HAS EQUAL CAP REFILL AND EQUAL CHEST RISE. SITTER REMAINS OUTSIDE ROOM FOR CONTINOUS SAFETY MONITORING.
--- NOTE | 2019-04-28 12:54 | NUR ---
LUNCH RN: PT PROVIDED WITH ED SUCIDE MEAL TRAY.
--- NOTE | 2019-04-28 13:37 | NUR ---
Patient ate lunch, back in bed now, resting. Sitter remains in place.
--- NOTE | 2019-04-28 14:38 | NUR ---
Patient in room, dressing change done on laceration L wrist - suture line intact, no drainage. L hand has 1+ edema. Changed foam dressing on coccyx, cleaned with wound cleanser and new dressing applied. Area is reddened, no open area actually visualized. Patient is active and is up ad down from bed to chair frequently, so no turning required.
--- NOTE | 2019-04-28 15:49 | NUR ---
Patient sitting up in chair watching TV and having a snack.
[2019-04-28] MEDS: BACITRACIN/POLYMIXIN B SULFATE OINT 14 GM TP SCH (16:00)
--- NOTE | 2019-04-28 16:36 | NUR ---
Patient up in hallway, wants to leave. He is trying to get to exit, nondirectable. Security called. Dr. Crespo informed. Cari Condon APRN called and in with patient now.
--- NOTE | 2019-04-28 17:00 | NUR ---
Patient calmer, walked in samaniego with PSA, back in his room.
--- NOTE | 2019-04-28 17:46 | NUR ---
Patient resting in bed presently - dinner tray placed for him.
--- NOTE | 2019-04-28 18:24 | NUR ---
Patient ate 70% of dinner, back in bed to rest.
--- NOTE | 2019-04-28 19:47 | NUR ---
Received report from CLARISSA Estevez.
--- NOTE | 2019-04-28 20:25 | NUR ---
Dressing removed so patient coud use the bathroom. New, clean dressing applied to coccyx area. Area is healing appropriately. Patient is in bed watching TV and is calm and cooperative. Sitter in doorway for safety.
[2019-04-28] MEDS ORDERED: APIXABAN 5 MG TABLET ONE (21:05)
[2019-04-28] MEDS ORDERED: NICOTINE 21 MG/24 HR PATCH.TD24 ONE (21:05)
[2019-04-28] MEDS: NICOTINE 21 MG/24 HR PATCH.TD24 TD SCH (21:11)
[2019-04-28] MEDS: TRAZODONE 100MG TABLET PO SCH (21:12)
[2019-04-28] MEDS ORDERED: ZOLPIDEM 5MG TABLET ONE (21:19)
[2019-04-28] MEDS: ZOLPIDEM 5MG TABLET PO PRN (21:24)
--- NOTE | 2019-04-28 21:42 | NUR ---
Note siddhartha in EDM - 04/28/19 at 2148 by JJ All VS's within normal range. Pt givn [facility] meds and cooperative with all nursing care. Pt also given PRN sleep medication to mitigate insomnia. Pt is sitting in chair watching TV and stated to nurse that all needs are met. Sitter in doorway for safety. Will continue to monitor.
--- NOTE | 2019-04-28 21:48 | NUR ---
All VS's within normal range. Pt givn QHS meds and cooperative with all nursing care. Pt also given PRN sleep medication to mitigate insomnia. Pt is sitting in chair watching TV and stated to nurse that all needs are met. Sitter in doorway for safety. Will continue to monitor.
--- NOTE | 2019-04-28 22:46 | NUR ---
Pt is stand-by assist and transferred from bed to chair with th help of tech. Patient watching TV and states to nurse that all needs are met. Sitter in doorway. Leonardo continue to monitor.
--- NOTE | 2019-04-29 00:15 | NUR ---
Patient sleeping. Equal chest rise and fall and No signs of distress. Sitter in doorway for safety. Will continue to monitor.
--- NOTE | 2019-04-29 01:25 | NUR ---
Urine collected and sent to lab. Pt laying in bed with eyes closed. Respirations even and unlabored. Sitter in doorway. Will continue to monitor.
[2019-04-29 01:42] LABS: MICROSCOPIC AUTO
[2019-04-29 01:43] LABS: CULTURE INDICATED? YES
--- NOTE | 2019-04-29 02:34 | NUR ---
Note siddhartha in ED - 04/29/19 at 0237 by PEARL Patient sleeping. Equal chest rise and fall and No signs of distress. Sitter in doorway for safety. Will continue to monitor.
--- NOTE | 2019-04-29 02:37 | NUR ---
Pt awake and transferred to chair to watch TV. Pt is in no apparent distress. Sitter outdie doorway.Will continue to monitor.
--- NOTE | 2019-04-29 03:29 | NUR ---
Patient sleeping. Equal chest rise and fall and No signs of distress. Sitter in doorway for safety. Will continue to monitor.
--- NOTE | 2019-04-29 04:54 | NUR ---
Patient sleeping. Equal chest rise and fall and No signs of distress. Sitter in doorway for safety. Will continue to monitor.
--- NOTE | 2019-04-29 06:15 | NUR ---
PT RESTING IN BED WITH EYES CLOSED, NAD, EQUAL CHEST RISE/FALL OBSERVED, SITTER AT DOORWAY FOR CONTINOUS MONITORING.
[2019-04-29] MEDS ORDERED: TAMSULOSIN 0.4 MG CAP.ER.24H ONE (08:40)
[2019-04-29] MEDS ORDERED: NITROFURANTOIN (MACROBID) 100 MG CAPSULE ONE ×2 (08:40→20:14)
[2019-04-29] MEDS ORDERED: SERTRALINE 50MG TABLET ONE (08:41)
[2019-04-29] MEDS ORDERED: APIXABAN 5 MG TABLET ONE ×2 (08:41→20:14)
[2019-04-29] MEDS: NITROFURANTOIN (MACROBID) 100 MG CAPSULE PO SCH ×2 (08:59→20:36)
[2019-04-29] MEDS: DIVALPROEX 125 MG TABLET.DR PO SCH ×2 (09:00→20:36)
[2019-04-29] MEDS: SERTRALINE 50MG TABLET PO SCH (09:00)
[2019-04-29] MEDS: TAMSULOSIN 0.4 MG CAP.ER.24H PO SCH (09:00)
[2019-04-29] MEDS: BACITRACIN/POLYMIXIN B SULFATE OINT 14 GM TP SCH (09:00)
[2019-04-29] MEDS: APIXABAN 5 MG TABLET PO SCH ×2 (09:00→20:36)
--- NOTE | 2019-04-29 09:43 | NUR ---
The pt had been in bed with his eyes closed, he at 100% of his breakfast. He has been calm and cooperative with nursing care. Pt maintained on 1:1 for pt safety.
--- NOTE | 2019-04-29 10:24 | NUR ---
Pt lying in bed with eyes closed with the TV on
--- NOTE | 2019-04-29 11:26 | NUR ---
The pt has been sitting up in his chair for short periods then going back and forth to bed. He has been ambulating in his room. The CM has been following this pt, there is a sceduled interview for a longterm today. The pt continues to be monitored. He states all needs met at this time.
--- NOTE | 2019-04-29 13:37 | NUR ---
The pt is lying in bed with his eyes closed.
--- NOTE | 2019-04-29 15:05 | NUR ---
The pt has been sitting up in his chair, ambulating in his room off and on. He is A&O x4, he is currently watching TV
--- NOTE | 2019-04-29 16:00 | NUR ---
The pt was interviewed by the owners of a assisted. The pt was very engaging and was smiling. He asked "when am I leaving?" they had stated most likely tomorrow but are trying to get all of the financial information today.
--- NOTE | 2019-04-29 16:59 | NUR ---
The pt has been interviewed by a second detention, the pt appeared to be engaged in conversation and smiling at times. He is sitting in his chair at his bedside.
--- NOTE | 2019-04-29 17:54 | NUR ---
The pt is sitting up in his chair eating his dinner.
--- NOTE | 2019-04-29 18:19 | NUR ---
The pt is sitting up in his chair, he ate 100% of his dinner.
--- NOTE | 2019-04-29 19:16 | NUR ---
Assumed care of patient. Received report from Kristen ROMO. Pt asleep in bed, respirations even and unlabored, sitter in view, will continue to monitor patient.
--- NOTE | 2019-04-29 19:41 | NUR ---
pt now awake, sitting, vitals within normal limits, no other needs, will continue to monitor
[2019-04-29] MEDS ORDERED: NICOTINE 21 MG/24 HR PATCH.TD24 ONE (20:12)
[2019-04-29] MEDS ORDERED: ZOLPIDEM 5MG TABLET ONE (20:14)
[2019-04-29] MEDS ORDERED: TRAZODONE 50MG TABLET ONE (20:14)
[2019-04-29] MEDS: NICOTINE 21 MG/24 HR PATCH.TD24 TD SCH (20:36)
[2019-04-29] MEDS: TRAZODONE 100MG TABLET PO SCH (20:37)
[2019-04-29] MEDS: ZOLPIDEM 5MG TABLET PO PRN (20:37)
--- NOTE | 2019-04-29 22:47 | NUR ---
Pt asleep in bed, respirations even and unlabored, no nad, sitter in view, will continue to monitor patient
--- NOTE | 2019-04-30 01:20 | NUR ---
Pt sleeping in bed, respirations even and unlabored, no nad, sitter in the hallway, will continue to monitor patient.
--- NOTE | 2019-04-30 03:12 | NUR ---
pt sleeping in bed, no acute distress, sitter in the hallway for safety, room secured, will continue to monitor patient.
--- NOTE | 2019-04-30 05:15 | NUR ---
Wyatt carl in ED - 04/30/19 at 0519 by MEHRDAD Patient asleep in bed, respirations even and unlabored, no acute distress noted, sitter in hallway for continuous monitoring.
--- NOTE | 2019-04-30 05:19 | NUR ---
Patient asleep in bed, respirations even and unlabored, no acute distress noted, sitter in hallway for continuous monitoring.
--- NOTE | 2019-04-30 05:34 | NUR ---
pt now awake sitting, no nad, provided with water, will continue to monitor, sitter in the hallway for continuous monitoring.
--- NOTE | 2019-04-30 06:54 | NUR ---
RECEIVED BEDSIDE REPORT FROM CLARISSA WHITE. PER NOC CHARGE, PT IS SUPPOSED TO BE DISCHARGING TODAY TO A SNF. UNSURE OF TIME. PT SLEEPING ON HOSP BED. NO ACUTE DISTRESS NOTED. ALL SAFETY MEASURES OBTAINED.
[2019-04-30] MEDS ORDERED: TAMSULOSIN 0.4 MG CAP.ER.24H ONE (08:53)
[2019-04-30] MEDS ORDERED: APIXABAN 5 MG TABLET ONE (08:54)
[2019-04-30] MEDS ORDERED: SERTRALINE 50MG TABLET ONE (08:54)
[2019-04-30 09:09] VITALS: BP 104/59
[2019-04-30] MEDS: APIXABAN 5 MG TABLET PO SCH (09:11)
[2019-04-30] MEDS: TAMSULOSIN 0.4 MG CAP.ER.24H PO SCH (09:11)
[2019-04-30] MEDS: BACITRACIN/POLYMIXIN B SULFATE OINT 14 GM TP SCH (09:11)
[2019-04-30] MEDS: SERTRALINE 50MG TABLET PO SCH (09:11)
--- NOTE | 2019-04-30 09:15 | NUR ---
pt completed breakfast tray. medications administered per emar. awaiting a med from pharmacy. no acute distress noted. pt ambulatory with steady gait around room. will continue to monitor
--- NOTE | 2019-04-30 09:16 | NUR ---
late entry for 0800. pt resting on hosp bed. no acute distress noted. pt watching tv. no needs requested at this time.
[2019-04-30] MEDS: DIVALPROEX 125 MG TABLET.DR PO SCH (09:56)
--- NOTE | 2019-04-30 10:48 | NUR ---
PT SLEEPING ON HOSPITAL BED. NO ACUTE DISTRESS NOTED. RESPS EQUAL AND UNLABORED. ALL SAFETY MEASURES OBTAINED. WILL CONTINUE TO MONITOR.
--- NOTE | 2019-04-30 12:17 | NUR ---
DIET TRAY DELIVERED. PT SITTING ON CHAIR. PT AMBULATORY WITHIN ROOM.
--- NOTE | 2019-04-30 13:07 | NUR ---
PT SLEEPING ON HOSP BED. RESPS EQUAL AND UNLABORED. NO ACUTE DISTRESS NOTED AT THIS TIME. PT FINISHED 100% OF DIET TRAY. WILL CONTINUE TO MONITOR.
--- NOTE | 2019-04-30 13:27 | NUR ---
BEDSIDE REPORT TO CLARISSA SAHNI.
--- NOTE | 2019-04-30 13:30 | NUR ---
received report from Dedra. pt sitting on BSC, responds to staff, NAD, no needs at this time, pt remains in safe environment, sitter in view, iso precautions remain in place.
--- NOTE | 2019-04-30 13:30 | NUR ---
received report from Dedra. pt calmly sleeping on gurney, responds to staff, NAD, no needs at this time, pt remains in safe environment, sitter in view,
--- NOTE | 2019-04-30 14:01 | NUR ---
pt sitting on BSC prn, otherwise upright on gurney awake & calm, responds to staff, NAD, no needs at this time, pt remains in safe environment, sitter in view, iso precautions remain in place.
--- NOTE | 2019-04-30 15:03 | NUR ---
pt calmly sleeping on gurney, responds to staff, NAD, no needs at this time, pt remains in safe environment, sitter in view.
--- NOTE | 2019-04-30 15:51 | NUR ---
pt attempting to leave AMA, "I'm leaving, I'm tired of this shit", security called to assist pt back to room to change into his street clothes, ERP & SW (Car[place]) aware & SW able to arrange [facility] transport to [facility], pt refused to wait in room & escorted to lobby by security, pt verbalized understanding of leaving AMA while awaiting transport.
--- NOTE | 2019-04-30 16:00 | NUR ---
pt remains in lobby sitting in WC, ambulating at times, NAD, no needs at this time, awaiting [facility] pick-up at ~1700.
--- NOTE | 2019-04-30 17:04 | NUR ---
pt picked up by [facility] without incident.
--- NOTE | 2019-04-30 17:05 | NUR ---
Patient & transport given discharge instructions and they have confirmed that they understand the instructions. Patient ambulatory with steady gait.
== END 2019-04-30 17:05 | disposition home or self-care (01) ==
LOC: ED 15:20 → EDIP 04-20 17:35 → UNDOADMIN 04-20 17:35 → UNDODISIN 04-30 17:05 → ED 04-30 17:05
DX: S61.512A Laceration without foreign body of left wrist, initial encounter (principal); F32.9 Major depressive disorder, single episode, unspecified; F43.21 Adjustment disorder with depressed mood; F17.200 Nicotine dependence, unspecified, uncomplicated; X78.1XXA Intentional self-harm by knife, initial encounter; Y93.89 Activity, other specified; Y92.89 Other specified places as the place of occurrence of the external cause; Y99.8 Other external cause status
CPT/HCPCS: 12035; 36415; 80053; 80307; 81001; 85025; 85610; 87077; 87086; 87184; 87186; 93005; 96372; 99285; J1650; J3486; J3490; Q0163